=== PATIENT | female | born 1970 | race African-American/Black ===

== ENCOUNTER 2018-09-27 16:40 | Emergency (ER) | payer BC ==
[2018-09-27] MEDS ORDERED: METHYLPREDNISOLONE INJ 125 MG/2 ML SDV IV ONE (16:57)
[2018-09-27] MEDS ORDERED: IPRATROPIUM/ALBUTEROL 0.5-2.5 MG/3 ML AMPUL NEB ONE (16:57)
--- NOTE | 2018-09-27 16:59 | ER Document Report ---
ED Medical Screen (RME) - General Chief Complaint: Asthma Exacerbation Stated Complaint: ASTHMA EXACERBATION Time Seen by Provider: 09/27/18 16:54 Primary Care Provider: NIELS CALHOUN MD [Primary Care Provider] - Follow up as needed Notes: 48 years old female with a history of asthma, started wheezing since last . Was put on steroid pack by the primary care physician which is in the yesterday. Presents today with acute exacerbation of wheezing, diaphoretic shortness of breath and persistent coughing. Having acute respiratory discomfort or distress. And diffuse bilateral wheezing with decreased breath sounds. And diaphoretic. TRAVEL OUTSIDE OF THE [place] IN LAST 30 DAYS: No - Related Data Allergies/Adverse Reactions: erythromycin lactobionate [From Erythrocin] Allergy (Verified 09/27/18 16:45) rash Past Medical History - Past Medical History Cardiac Medical History: Reports: Hx Hypertension Denies: Hx Heart Attack Pulmonary Medical History: Reports: Hx Asthma - NO MEDS Neurological Medical History: Reports: Hx Seizures - FEBRILE A TODDLER. Denies: Hx Cerebrovascular Accident Endocrine Medical History: Reports: Hx Diabetes Mellitus Type 2 GI Medical History: Reports: Hx Hiatal Hernia. Denies: Hx Hepatitis, Hx Ulcer Musculoskeltal Medical History: Reports Hx Arthritis Infectious Medical History: Denies: Hx Hepatitis Past Surgical History: Reports: Hx Abdominal Surgery - gastric bypass. Denies: Hx Hysterectomy, Hx Mastectomy, Hx Open Heart Surgery, Hx Pacemaker - Immunizations Hx Diphtheria, Pertussis, Tetanus Vaccination: Yes - 6 yrs ago Physical Exam - Vital signs Vitals: Temp Pulse Resp BP Pulse Ox 99.0 F 98 26 H 133/98 H 99 09/27/18 16:47 09/27/18 16:47 09/27/18 16:47 09/27/18 16:47 09/27/18 16:47 Course - Vital Signs Vital signs: Temp Pulse Resp BP Pulse Ox 99.0 F 98 26 H 133/98 H 99 09/27/18 16:47 09/27/18 16:47 09/27/18 16:47 09/27/18 16:47 09/27/18 16:47 Doctor's Discharge - Discharge Referrals: NIELS CALHOUN MD [Primary Care Provider] - Follow up as needed
[2018-09-27] MEDS: MAGNESIUM SULFATE/D5W 1 GM/100 ML RTUPB IV SCH ×2 (17:13→17:19)
[2018-09-27] MEDS: ALBUTEROL SULFATE 0.083% NEB 2.5 MG/3 ML AMPUL NEB SCH ×2 (17:17→17:19)
--- NOTE | 2018-09-27 17:23 | RADIOLOGY REPORT (SQ) ---
EXAM DESCRIPTION: CHEST SINGLE VIEW COMPLETED DATE/TIME: 09/27/2018 5:10 pm REASON FOR STUDY: Cough and wheezing COMPARISON: 08/01/2014 EXAM PARAMETERS: NUMBER OF VIEWS: One view. TECHNIQUE: Single frontal radiographic view of the chest acquired. RADIATION DOSE: NA LIMITATIONS: None. FINDINGS: LUNGS AND PLEURA: No opacities, masses or pneumothorax. No pleural effusion. MEDIASTINUM AND HILAR STRUCTURES: No masses. Contour normal. HEART AND VASCULAR STRUCTURES: Heart normal in size. Normal vasculature. BONES: No acute findings. HARDWARE: None in the chest. OTHER: No other significant finding. IMPRESSION: NO ACUTE RADIOGRAPHIC FINDING IN THE CHEST. TECHNICAL DOCUMENTATION: JOB ID: [id number] [employer]- All Rights Reserved Reading location - IP/workstation name: [email or web address]
[2018-09-27] MEDS ORDERED: ONDANSETRON HCL INJ/PF 4 MG/2 ML SDV ONE (17:24)
[2018-09-27 17:30] LABS: ABSOLUTE BASOPHILS # (AUTO) 0.1 10^3/uL (0.0-0.2); ABSOLUTE EOSINOPHILS # (AUTO) 0.1 10^3/uL (0.0-0.6); ABSOLUTE LYMPHOCYTES (AUTO) 4.3 10^3/uL (0.5-4.7); ABSOLUTE MONOCYTES (AUTO) 1.2 10^3/uL (0.1-1.4); ABSOLUTE NEUT (AUTO) 6.4 10^3/uL (1.7-8.2); BASOPHILS % (AUTO) 0.6 % (0-2); EOSINOPHILS % (AUTO) 1.1 % (0-6); HEMATOCRIT 40.3 % (36.0-47.0); HEMOGLOBIN 13.5 g/dL (12.0-15.5); LYMPHOCYTES % (AUTO) 35.1 % (13-45); MEAN CORPUSCULAR HEMOGLOBIN 29.6 pg (27.0-33.4); MEAN CORPUSCULAR HGB CONC 33.6 g/dL (32.0-36.0); MEAN CORPUSCULAR VOLUME 88 fl (80-97); MONOCYTES % (AUTO) 10.3 % (3-13); PLATELET COUNT 445 10^3/uL (150-450); RED BLOOD COUNT 4.58 10^6/uL (3.72-5.28); RED CELL DISTRIBUTION WIDTH 13.6 % (11.5-14.0); SEGMENTED NEUTROPHILS % (AUTO) 52.9 % (42-78); TOTAL CELLS COUNTED % (AUTO) 100 %; WHITE BLOOD COUNT 12.1 10^3/uL (4.0-10.5)
[2018-09-27] MEDS ORDERED: ONDANSETRON HCL INJ/PF 4 MG/2 ML SDV IV ONE (17:30)
[2018-09-27 17:49] LABS: ALANINE AMINOTRANSFERASE 31 U/L (9-52); ALBUMIN 4.6 g/dL (3.5-5.0); ALKALINE PHOSPHATASE 107 U/L (38-126); ANION GAP 9 (5-19); ASPARTATE AMINO TRANSFERASE 30 U/L (14-36); BILIRUBIN,DIRECT 0.3 mg/dL (0.0-0.4); BILIRUBIN,TOTAL 0.6 mg/dL (0.2-1.3); BLOOD UREA NITROGEN 19 mg/dL (7-20); CALCIUM 9.6 mg/dL (8.4-10.2); CARBON DIOXIDE 29 mmol/L (22-30); CHLORIDE 106 mmol/L (98-107); GLUCOSE 117 mg/dL (75-110); POTASSIUM 4.2 mmol/L (3.6-5.0); SODIUM 143.7 mmol/L (137-145)
[2018-09-27 19:28] LABS: VENOUS BLOOD BASE EXCESS 4.3 mmol/L; VENOUS BLOOD HCO3 29.6 mmol/L (20-32); VENOUS BLOOD PCO2 46.6 mmHg (35-63); VENOUS BLOOD PH 7.42 (7.30-7.42)
[2018-09-27] MEDS ORDERED: MAGNESIUM SULFATE/D5W 1 GM/100 ML RTUPB IV SCH (20:30)
[2018-09-27 21:06] LABS: A TYPE INFLUENZA AG NEGATIVE (NEGATIVE); B INFLUENZA AG NEGATIVE (NEGATIVE)
[2018-09-27] MEDS ORDERED: HYDROCODONE BIT/HOMATROPINE SYRUP 5 ML UDCUP PO ONE (21:08)
[2018-09-27] MEDS ORDERED: AMOXICILLIN TRIHYDRATE 500 MG CAPSULE PO ONE (21:25)
[2018-09-27] MEDS ORDERED: ALBUTEROL SULFATE HFA (90 MCG/PUFF) 8 GM MDI (1 MDI/ER DISP) IH SCH (21:30)
--- NOTE | 2018-09-27 21:36 | ER Document Report ---
ED General - General Chief Complaint: Asthma Exacerbation Stated Complaint: ASTHMA EXACERBATION Time Seen by Provider: 09/27/18 16:54 Primary Care Provider: NIELS CALHOUN MD [ACTIVE STAFF] - Follow up as needed TRAVEL OUTSIDE OF THE [place] IN LAST 30 DAYS: No - HPI Notes: She presents emergency department for evaluation of cough and shortness of breath. She has a history of asthma. She states she has had nasal congestion his symptoms for the last 3 weeks. She started having some left-sided chest wall pain over the last several days. She was seen by her primary care ph ysician who recommended that she come to the emergency department for chest x- ray. She denies any fevers but she has had some chills. No nausea or vomiting. Eating and drinking normally. - Related Data Allergies/Adverse Reactions: erythromycin lactobionate [From Erythrocin] Allergy (Verified 09/27/18 16:45) rash Past Medical History - General Information source: Patient - Social History Smoking Status: Never Smoker Chew tobacco use (# tins/day): No Frequency of alcohol use: Rare Drug Abuse: None Family History: Reviewed & Not Pertinent Patient has suicidal ideation: No Patient has homicidal ideation: No - Past Medical History Cardiac Medical History: Reports: Hx Hypertension - no meds Denies: Hx Heart Attack Pulmonary Medical History: Reports: Hx Asthma - NO MEDS Neurological Medical History: Reports: Hx Seizures - FEBRILE A TODDLER. Denies: Hx Cerebrovascular Accident Endocrine Medical History: Reports: Hx Diabetes Mellitus Type 2 - no meds Renal/ Medical History: Denies: Hx Peritoneal Dialysis GI Medical History: Reports: Hx Hiatal Hernia. Denies: Hx Hepatitis, Hx Ulcer Musculoskeletal Medical History: Reports Hx Arthritis Infectious Medical History: Denies: Hx Hepatitis Past Surgical History: Reports: Hx Abdominal Surgery - gastric bypass. Denies: Hx Hysterectomy, Hx Mastectomy, Hx Open Heart Surgery, Hx Pacemaker - Immunizations Hx Diphtheria, Pertussis, Tetanus Vaccination: Yes - 6 yrs ago Review of Systems - Review of Systems Constitutional: No symptoms reported EENT: See HPI Cardiovascular: No symptoms reported Respiratory: See HPI Gastrointestinal: No symptoms reported Female Genitourinary: No symptoms reported Musculoskeletal: No symptoms reported Skin: No symptoms reported Physical Exam - Vital signs Vitals: Temp Pulse Resp BP Pulse Ox 99.0 F 98 26 H 133/98 H 99 09/27/18 16:47 09/27/18 16:47 09/27/18 16:47 09/27/18 16:47 09/27/18 16:47 - Notes Notes: Vital signs reviewed, please refer to chart. Patient is normocephalic, atraumatic. Pupils equal round, reactive to light. Tender over left maxillary and ethmoid sinuses. Neck is supple without meningismus. Heart is regular rate and rhythm. No work of breathing. Chest wall is tender to palpation. Lungs are clear to auscultation bilaterally. Abdomen is soft, nontender, normoactive bowel sounds throughout. Extremities without cyanosis, clubbing, edema. Peripheral pulses are equal. Skin is warm and dry. Patient is awake, alert, neurological exam is nonfocal. Course - Re-evaluation Re-evalutation: 09/27/18 21:34 Presents emergency department for evaluation. She was seen and evaluated by triage physician, orders were placed. Chest x-ray was interpreted by radiology showing no acute cardiopulmonary disease. Lavatory medications were largely unremarkable. Patient continued to feel short of breath despite clear lungs and good oxygenation. She was given magnesium, Hycodan. I did go ahead and treat her with amoxicillin for presumed sinusitis, given the duration of her symptom was. At this point again discharged home. She is to follow-up with primary care, return to the emergency department with worsening or new concerning symptoms. - Vital Signs Vital signs: Temp Pulse Resp BP Pulse Ox 99.0 F 98 23 H 125/82 100 09/27/18 16:47 09/27/18 16:47 09/27/18 20:01 09/27/18 20:01 09/27/18 20:01 - Laboratory Result Diagrams: 09/27/18 17:13 09/27/18 17:13 Laboratory results interpreted by me: 09/27/18 09/27/18 17:13 17:13 WBC 12.1 H Glucose 117 H - EKG Interpretation by Me Additional EKG results interpreted by me: 09/27/18 21:36 Sinus mechanism with a rate of 89 bpm. Normal axis and intervals, no acute ST changes concerning for ischemia or infarction. Discharge - Discharge Clinical Impression: Acute sinusitis, Acute asthma exacerbation Condition: Stable Instructions: Asthma ([facility]) Additional Instructions: Use inhaler, 1-2 puffs every 4-6 hours as needed for difficulty breathing. Take all of the prednisone and antibiotics as prescribed. Follow-up with your doctor next week. Return to the emergency department with worsening or new concerning symptoms of any sort. Prescriptions: Amoxicillin Trihydrate [Amoxil 500 mg Capsule] 500 mg PO TID #30 cap Prednisone [Deltasone 20 mg Tablet] See Protocol PO DAILY #20 tablet Referrals: NIELS CALHOUN MD [ACTIVE STAFF] - Follow up as needed
[2018-09-27 21:53] VITALS: BP 128/63
[2018-09-27] MEDS ORDERED: HYDROCODONE BIT/HOMATROPINE 5-1.5 MG TABLET PO ONE (22:00)
--- NOTE | 2018-09-27 22:18 | EKG REPORT ---
SEVERITY:- NORMAL ECG - SINUS RHYTHM : Confirmed by: Neha Barakat 27-Sep-2018 22:17:44
== END 2018-09-27 22:03 | disposition home or self-care (01) ==
LOC: ER 16:40
DX: J01.90 Acute sinusitis, unspecified (principal); J45.901 Unspecified asthma with (acute) exacerbation; Z98.84 Bariatric surgery status; Z88.3 Allergy status to other anti-infective agents
CPT/HCPCS: 93005; 94640 ×2; 99285; 96375; 96365; 36415; 85025; 80053; 82803; 87804; 71045; 93010; J2930; J3475; J2405; J3490; J7620

== ENCOUNTER 2018-10-12 02:33 | Inpatient (IN) | payer BC ==
[2018-10-12] MEDS ORDERED: KETAMINE HCL INJ 500 MG/10 ML VIAL IV ONE (02:46)
[2018-10-12] MEDS ORDERED: ONDANSETRON HCL INJ/PF 4 MG/2 ML SDV IV ONE (02:47)
[2018-10-12] MEDS ORDERED: KETAMINE HCL INJ 500 MG/10 ML VIAL ONE (02:47)
--- NOTE | 2018-10-12 02:49 | ER Document Report ---
ED General - General Chief Complaint: Shortness Of Breath Stated Complaint: SHORTNESS OF BREATH Time Seen by Provider: 10/12/18 02:46 Primary Care Provider: VITALIY PURVIS PA-C [Primary Care Provider] - Follow up as needed Notes: Patient is a 48-year-old female who presents with complaint of difficulty breathing. She has a history of asthma. She says she was diagnosed with URI 1- 2 weeks ago. She then saw her doctor. Said her doctor placed her on nebulizer treatments at home. She says she has been using them but despite this has not been doing well. She also had steroids. She says she is gradually worsened over last few days and today while at work she became much worse and had significant difficulty breathing. [place] was called. Paramedics said when they arrived she was not moving much air and had very tight wheezing breath sounds. They gave her Solu-Medrol, magnesium, and several breathing treatments. She now has improved air movement but still is having difficulty breathing with some distress. TRAVEL OUTSIDE OF THE [place] IN LAST 30 DAYS: No - Related Data Allergies/Adverse Reactions: erythromycin lactobionate [From Erythrocin] Allergy (Verified 09/27/18 16:45) rash Past Medical History - Social History Smoking Status: Never Smoker Frequency of alcohol use: None Drug Abuse: None Family History: Reviewed & Not Pertinent - Past Medical History Cardiac Medical History: Reports: Hx Hypertension - no meds Denies: Hx Heart Attack Pulmonary Medical History: Reports: Hx Asthma - NO MEDS Neurological Medical History: Reports: Hx Seizures - FEBRILE A TODDLER. Denies: Hx Cerebrovascular Accident Endocrine Medical History: Reports: Hx Diabetes Mellitus Type 2 - no meds Renal/ Medical History: Denies: Hx Peritoneal Dialysis GI Medical History: Reports: Hx Hiatal Hernia. Denies: Hx Hepatitis, Hx Ulcer Musculoskeletal Medical History: Reports Hx Arthritis Infectious Medical History: Denies: Hx Hepatitis Past Surgical History: Reports: Hx Abdominal Surgery - gastric bypass. Denies: Hx Hysterectomy, Hx Mastectomy, Hx Open Heart Surgery, Hx Pacemaker - Immunizations Hx Diphtheria, Pertussis, Tetanus Vaccination: Yes - 6 yrs ago Review of Systems - Review of Systems Notes: My Normal Review Basic REVIEW OF SYSTEMS: CONSTITUTIONAL : Denies fever, chills, or sweats. Denies recent illness. EENT: Denies eye, ear, throat, or mouth pain or symptoms. Denies nasal or sinus congestion. CARDIOVASCULAR: Denies chest pain. RESPIRATORY: Difficulty breathing. GASTROINTESTINAL: Denies abdominal pain. Denies nausea, vomiting, or diarrhea. MUSCULOSKELETAL: Denies neck or back pain or joint pain or swelling. SKIN: Denies rash or skin lesions. NEUROLOGICAL: Denies altered mental status or loss of consciousness. Denies headache. Denies weakness or paralysis or loss of use of either side. Denies problems with gait or speech. Denies sensory or motor loss. ALL OTHER SYSTEMS REVIEWED AND NEGATIVE. Physical Exam - Notes Notes: General Appearance: Well nourished, alert, cooperative, moderate acute distress, no obvious discomfort. Tearful with some erratic breathing. Vitals: reviewed, See vital signs table. Head: no swelling or tenderness to the head Eyes: PERRL, EOMI, Conjuctiva clear Mouth: No decreasd moisture Throat: No tonsillar inflammation, No airway obstruction, No lymphadenopathy Neck: Supple, no neck tenderness, No thyromegaly Lungs: Scattered wheezing. Fair air exchange. Some accessory muscle use. Heart: Tachycardic rate, Regular rythm, No murmur, no rub Abdomen: Normal BS, soft, No rigidity, No abdominal tenderness, No guarding, no rebound, no abdominal masses, no organomegaly Extremities: strength 5/5 in all extremities, good pulses in all extremities, no swelling or tenderness in the extremities, no edema. Skin: warm, dry, appropriate color, no rash Neuro: speech clear, oriented x 3, normal affect, responds appropriately to questions. Course - Re-evaluation Re-evalutation: 10/12/18 02:47 Paramedics report that when they first arrived the patient has very tight lung sounds with poor air movement. Now she has good air movement but she is anxious and not controlling her breathing well. Her respiratory rate has improved some according to paramedics however she is not breathing at a regular rate and she is very choppy with her breathing. I will give her a small dose of ketamine to see if this helps calm some of her anxiety did down in regards to her asthma and this will also help with bronchodilation to help further help her breathing. We will closely monitor to make sure she improves. 10/12/18 03:51 On reevaluation patient's breathing is much improved. Her breathing is come down significant. She is still requiring BiPAP but doing well with it. She still has a few scattered wheezes but overall her air movement is much improved. I did talk to patient length. I recommend admission based on the fact that she was in distress when she arrived in the fact it took several breathing treatments with the paramedics, site Medrol, magnesium, and ketamine she is here to get her better. Patient agrees with admission. I did speak with the hospitalist, Dr. Chicas, who agrees to evaluate her for admission. Dictation of this chart was performed using voice recognition software; therefore, there may be some unintended grammatical errors. - Laboratory Result Diagrams: 10/12/18 02:50 10/12/18 02:50 Laboratory results interpreted by me: 10/12/18 10/12/18 02:50 02:50 WBC 11.8 H Glucose 139 H Discharge - Discharge Clinical Impression: Asthma attack Qualifiers: Asthma severity: unspecified severity Asthma persistence: persistent Qualified Code(s): J45.901 - Unspecified asthma with (acute) exacerbation Condition: Stable Disposition: ADMITTED OBSERVATION Admitting Provider: Hospitalist Unit Admitted: Telemetry Referrals: VITALIY PURVIS PA-C [Primary Care Provider] - Follow up as needed
[2018-10-12 03:08] LABS: ABSOLUTE EOSINOPHILS # (AUTO) 0.1 10^3/uL (0.0-0.6); ABSOLUTE LYMPHOCYTES (AUTO) 3.7 10^3/uL (0.5-4.7); ABSOLUTE MONOCYTES (AUTO) 0.9 10^3/uL (0.1-1.4); BASOPHILS % (AUTO) 0.4 % (0-2); HEMATOCRIT 37.8 % (36.0-47.0); HEMOGLOBIN 12.6 g/dL (12.0-15.5); LYMPHOCYTES % (AUTO) 31.6 % (13-45); MEAN CORPUSCULAR HEMOGLOBIN 29.5 pg (27.0-33.4); MEAN CORPUSCULAR HGB CONC 33.5 g/dL (32.0-36.0); MEAN CORPUSCULAR VOLUME 88 fl (80-97); MONOCYTES % (AUTO) 7.9 % (3-13); PLATELET COUNT 300 10^3/uL (150-450); RED BLOOD COUNT 4.29 10^6/uL (3.72-5.28); RED CELL DISTRIBUTION WIDTH 13.6 % (11.5-14.0); SEGMENTED NEUTROPHILS % (AUTO) 59.1 % (42-78); TOTAL CELLS COUNTED % (AUTO) 100 %; WHITE BLOOD COUNT 11.8 10^3/uL (4.0-10.5)
[2018-10-12 03:25] LABS: ANION GAP 11 (5-19); BLOOD UREA NITROGEN 20 mg/dL (7-20); CALCIUM 9.3 mg/dL (8.4-10.2); CARBON DIOXIDE 23 mmol/L (22-30); CHLORIDE 107 mmol/L (98-107); GLUCOSE 139 mg/dL (75-110); POTASSIUM 4.1 mmol/L (3.6-5.0); SODIUM 141.1 mmol/L (137-145)
[2018-10-12] MEDS ORDERED: LEVALBUTEROL HCL NEB 1.25 MG/3 ML AMPUL NEB ONE (03:52)
[2018-10-12] MEDS ORDERED: HYDRALAZINE HCL INJ/PF 20 MG/1 ML SDV IV PRN (04:03)
[2018-10-12] MEDS ORDERED: GLUCAGON,HUMAN RECOMB 1 MG INJ IM PRN (04:04)
[2018-10-12] MEDS ORDERED: IPRATROPIUM/ALBUTEROL 0.5-2.5 MG/3 ML AMPUL NEB PRN (04:04)
[2018-10-12] MEDS ORDERED: DEXTROSE 50%-WATER 25 GM/50 ML DISP.SYRIN IV PRN ×2 (04:04)
[2018-10-12] MEDS ORDERED: DEXTROSE 40% GEL 15 GM TUBE PO PRN ×2 (04:04)
[2018-10-12] MEDS ORDERED: PREDNISONE 20 MG TABLET PO ONE (04:15)
[2018-10-12] MEDS ORDERED: CHLORPHENIRAMINE MALEATE 4 MG TABLET PO ONE (04:22)
--- NOTE | 2018-10-12 04:22 | PDOC H&P ---
History of Present Illness Admission Date/PCP: 10/12/18 04:04 VITALIY PURVIS PA-C Patient complains of: Asthma exacerbation History of Present Illness: NANCY REICH is a 48 year old female with a past medical history of remote gastric bypass with persistent morbid obesity, GERD and persistent asthma with exacerbation of the last 2 weeks associated with rhinorrhea, GERD and nonproductive cough. She has had brief improvement of symptoms with systemic steroids but severe worsening 4 hours prior to presentation. She is found with global wheeze requiring continuous nebulizer, magnesium, ketamine and BiPAP. She denies recent antibiotic use, previous intubation and is otherwise felt well. She is unaware of her baseline peak flow Past Medical History Cardiac Medical History: Reports: Hypertension - no meds Denies: Myocardial Infarction Pulmonary Medical History: Reports: Asthma - NO MEDS Neurological Medical History: Reports: Seizures - FEBRILE A TODDLER Endocrine Medical History: Reports: Diabetes Mellitus Type 2 - no meds, Obesity GI Medical History: Reports: Hiatal Hernia Denies: Hepatitis Musculoskeltal Medical History: Reports: Arthritis Psychiatric Medical History: Reports: None Hematology: Denies: Anemia, Sickle Cell Disease Past Surgical History Past Surgical History: Denies: Amputation, Hysterectomy, Mastectomy, Pacemaker Social History Information Source: Patient, ON LICENSE OF [facility] Records Lives with: Friend Smoking Status: Never Smoker Drugs: None - Advance Directive Resuscitation Status: Full Code Family History Family History: Hypertension Parental Family History Reviewed: Yes Children Family History Reviewed: Yes Sibling(s) Family History Reviewed.: Yes Medication/Allergy Home Medications: No Home Medications 1 06/08/12 Amoxicillin Trihydrate [Amoxil 500 mg Capsule] 500 mg PO TID #30 cap 09/27/18 Prednisone [Deltasone 20 mg Tablet] See Protocol PO DAILY #20 tablet 09/27/18 Allergies/Adverse Reactions: erythromycin lactobionate [From Erythrocin] Allergy (Verified 09/27/18 16:45) rash Review of Systems Constitutional: PRESENT: as per HPI, weight gain. ABSENT: anorexia, chills, fatigue Eyes: ABSENT: visual disturbances Ears: ABSENT: hearing changes Nose, Mouth, and Throat: ABSENT: mouth pain, sore throat, vertigo Cardiovascular: PRESENT: dyspnea on exertion, edema. ABSENT: chest pain, orthropnea, palpitations Respiratory: PRESENT: cough, dyspnea, sputum Gastrointestinal: ABSENT: abdominal pain, constipation, diarrhea, hematemesis, hematochezia, nausea, vomiting Genitourinary: ABSENT: dysuria, hematuria Musculoskeletal: ABSENT: joint swelling Integumentary: ABSENT: rash, wounds Neurological: ABSENT: abnormal gait, abnormal speech, confusion, dizziness, focal weakness, syncope Psychiatric: ABSENT: anxiety, depression, homidical ideation, suicidal ideation Endocrine: ABSENT: cold intolerance, heat intolerance, polydipsia, polyuria Hematologic/Lymphatic: ABSENT: easy bleeding, easy bruising Physical Exam Vital Signs: Temp Pulse Resp BP Pulse Ox 40 H 100 10/12/18 02:46 10/12/18 02:46 General appearance: PRESENT: cooperative, morbidly obese, severe distress Head exam: PRESENT: atraumatic, normocephalic Eye exam: PRESENT: conjunctiva pink, EOMI, PERRLA. ABSENT: scleral icterus Ear exam: PRESENT: normal external ear exam Mouth exam: PRESENT: moist, tongue midline Neck exam: ABSENT: carotid bruit, JVD, lymphadenopathy, thyromegaly Respiratory exam: PRESENT: accessory muscle use, clear to auscultation louisa, crackles, prolonged expiratory phas, retraction, symmetrical, tachypnea, wh eezes. ABSENT: rales, rhonchi Cardiovascular exam: PRESENT: +S1, +S2, tachycardia Pulses: PRESENT: normal dorsalis pedis pul Vascular exam: PRESENT: normal capillary refill GI/Abdominal exam: PRESENT: normal bowel sounds, soft. ABSENT: distended, guarding, mass, organolmegaly, rebound, tenderness Rectal exam: PRESENT: deferred Extremities exam: PRESENT: full ROM. ABSENT: calf tenderness, clubbing, pedal edema Neurological exam: PRESENT: alert, awake, oriented to person, oriented to place, oriented to time, oriented to situation, CN II-XII grossly intact. ABSENT: motor sensory deficit Psychiatric exam: PRESENT: appropriate affect, normal mood. ABSENT: homicidal ideation, suicidal ideation Skin exam: PRESENT: dry, intact, warm. ABSENT: cyanosis, rash Results Laboratory Results: 10/12/18 02:50 10/12/18 02:50 10/12/18 10/12/18 02:50 02:50 WBC 11.8 H RBC 4.29 Hgb 12.6 Hct 37.8 MCV 88 MCH 29.5 MCHC 33.5 RDW 13.6 Plt Count 300 Seg Neutrophils % 59.1 Lymphocytes % 31.6 Monocytes % 7.9 Eosinophils % 1.0 Basophils % 0.4 Absolute Neutrophils 7.0 Absolute Lymphocytes 3.7 Absolute Monocytes 0.9 Absolute Eosinophils 0.1 Absolute Basophils 0.0 Sodium 141.1 Potassium 4.1 Chloride 107 Carbon Dioxide 23 Anion Gap 11 BUN 20 Creatinine 0.57 Est GFR ( Amer) > 60 Est GFR (Non-Af Amer) > 60 Glucose 139 H Calcium 9.3 Assessment & Plan - Diagnosis (1) Asthma attack Qualifiers: Asthma severity: unspecified severity Asthma persistence: persistent Qualified Code(s): J45.901 - Unspecified asthma with (acute) exacerbation Is this a current diagnosis for this admission?: Yes Plan: Likely secondary to URI though complicated by GERD and super morbid obesity. Prednisone, supplemental oxygen, BiPAP, follow-up peak flow (2) GERD (gastroesophageal reflux disease) Is this a current diagnosis for this admission?: Yes Plan: Prevacid twice daily and education (3) Allergic sinusitis Is this a current diagnosis for this admission?: Yes Plan: Flonase (4) Diabetes Is this a current diagnosis for this admission?: Yes Plan: Self-reported, sliding scale insulin, follow-up A1c (5) Morbid obesity Is this a current diagnosis for this admission?: Yes Plan: Status post gastric bypass, morbid obesity will evaluate for metabolic cause with evaluation of thyroid function and dietitian consultation - Time Time Spent: 50 to 70 Minutes - Inpatient Certification Medical Necessity: Need Close Monitoring Due to Risk of Patient Decompensation
--- NOTE | 2018-10-12 04:27 | RADIOLOGY REPORT (SQ) ---
EXAM DESCRIPTION: XR CHEST 1 VIEW COMPLETED DATE/TME: 10/12/2018 02:46 CLINICAL HISTORY: 48 years, Female, dyspnea COMPARISON: 09/27/2018 NUMBER OF VIEWS: One TECHNIQUE: AP view of the chest LIMITATIONS: None. FINDINGS: The lungs are clear. The heart is normal in size. There is no pneumothorax or pleural effusion. There is mild elevation right hemidiaphragm. There is no acute fracture. IMPRESSION: No acute cardiopulmonary abnormality copyright 2010 [employer]- All Rights Reserved
[2018-10-12] MEDS ORDERED: LEVOFLOXACIN 750 MG/D5W RTU 750 MG/150 ML RTUPB IV ONE (05:00)
[2018-10-12] MEDS ORDERED: LANSOPRAZOLE 30 MG TAB.RAP.DR PO SCH (06:00)
[2018-10-12] MEDS ORDERED: FLUTICASONE NASAL SPRAY 50 MCG/SPRY 120 SPRAY/16 GM ONE (06:22)
[2018-10-12] MEDS: HEPARIN SOD (PORCINE) 5,000 UNIT/ML 1 ML SYRINGE SUBCUT SCH ×3 (06:23→22:35)
[2018-10-12] MEDS: FLUTICASONE NASAL SPRAY 50 MCG/SPRY 120 SPRAY/16 GM NASL SCH ×2 (06:28→19:34)
[2018-10-12] MEDS ORDERED: PANTOPRAZOLE SODIUM 40 MG TABLET.DR PO SCH ×2 (08:00→17:00)
--- NOTE | 2018-10-12 08:00 | EKG REPORT ---
SEVERITY:- NORMAL ECG - SINUS RHYTHM : Confirmed by: Nehemias Ma MD 12-Oct-2018 07:59:56
[2018-10-12] MEDS: IPRATROPIUM/ALBUTEROL 0.5-2.5 MG/3 ML AMPUL NEB SCH ×3 (08:52→19:34)
[2018-10-12] MEDS: PANTOPRAZOLE SODIUM 40 MG TABLET.DR PO SCH ×2 (09:20→19:31)
[2018-10-12] MEDS: INSULIN LISPRO 100 UNIT/ML 3 ML VIAL SUBCUT SCH ×3 (09:27→19:30)
[2018-10-12] MEDS: PREDNISONE 20 MG TABLET PO SCH ×2 (11:24→19:35)
[2018-10-12] MEDS: GABAPENTIN 300 MG CAPSULE PO SCH ×2 (14:52→22:31)
--- NOTE | 2018-10-12 15:00 | PDOC PROGRESS REPORT ---
Subjective Progress Note for:: 10/12/18 Subjective:: 48-year-old female with history of morbid obesity and recent gastric bypass gastroparesis reflux disease asthma came to the ER with exacerbation for the last 2 weeks in association with runny nose and nonproductive cough. On examination today patient is still short of breath struggling to complete the sentences. She is try to eat her breakfast and took off her BiPAP because she is a diabetic and got insulin. She is coughing continuously nonproductive cough from going to put her on Robitussin 10 mils every 4 hours. Reason For Visit: ACUTE BRONCITIS, ASTHMA, DIABETES GERD MORBID Physical Exam Vital Signs: Temp Pulse Resp BP Pulse Ox 97.9 F 72 19 143/87 H 100 10/12/18 06:01 10/12/18 08:57 10/12/18 14:00 10/12/18 14:01 10/12/18 14:01 Pulse Oximeter Continuous Start: 10/12/18 04:04 Freq: RTQ4 Status: Active Protocol: Document 10/12/18 12:00 JDR (Rec: 10/12/18 13:04 JDR [id number]) Pulse Oximetry Assessment Oxygen Saturation (92-100) 98 Equipment Usage Equipment Standby Continuous SpO2 Machine # 0 Additional RT Notes Other pt on er monitor Intake & Output 10/11/18 10/12/18 10/13/18 06:59 06:59 06:59 Weight 186.3 kg General appearance: PRESENT: mild distress, morbidly obese Head exam: PRESENT: atraumatic Eye exam: PRESENT: PERRLA Mouth exam: PRESENT: moist, tongue midline Neck exam: ABSENT: carotid bruit, JVD, lymphadenopathy, thyromegaly Respiratory exam: PRESENT: decreased breath sounds, wheezes Cardiovascular exam: PRESENT: tachycardia GI/Abdominal exam: PRESENT: normal bowel sounds, soft. ABSENT: distended, guarding, mass, organolmegaly, rebound, tenderness Extremities exam: PRESENT: full ROM. ABSENT: calf tenderness, clubbing, pedal edema Neurological exam: PRESENT: alert, awake, oriented to person, oriented to place, oriented to time, oriented to situation, CN II-XII grossly intact. ABSENT: motor sensory deficit Psychiatric exam: PRESENT: appropriate affect, normal mood. ABSENT: homicidal ideation, suicidal ideation Results Laboratory Results: 10/12/18 02:50 10/12/18 02:50 10/12/18 10/12/18 02:50 02:50 WBC 11.8 H RBC 4.29 Hgb 12.6 Hct 37.8 MCV 88 MCH 29.5 MCHC 33.5 RDW 13.6 Plt Count 300 Seg Neutrophils % 59.1 Lymphocytes % 31.6 Monocytes % 7.9 Eosinophils % 1.0 Basophils % 0.4 Absolute Neutrophils 7.0 Absolute Lymphocytes 3.7 Absolute Monocytes 0.9 Absolute Eosinophils 0.1 Absolute Basophils 0.0 Sodium 141.1 Potassium 4.1 Chloride 107 Carbon Dioxide 23 Anion Gap 11 BUN 20 Creatinine 0.57 Est GFR ( Amer) > 60 Est GFR (Non-Af Amer) > 60 Glucose 139 H Calcium 9.3 10/12/18 02:56 NT-Pro-B Natriuret Pep 181 H Impressions: Chest X-Ray 10/12/18 02:46 IMPRESSION: No acute cardiopulmonary abnormality copyright 2010 [employer]- All Rights Reserved Assessment & Plan - Diagnosis (1) Asthma attack Qualifiers: Asthma severity: unspecified severity Asthma persistence: persistent Qualified Code(s): J45.901 - Unspecified asthma with (acute) exacerbation Is this a current diagnosis for this admission?: Yes Plan: Likely secondary to URI though complicated by GERD and super morbid obesity. Prednisone, supplemental oxygen, BiPAP, follow-up peak flow 10/12/2018-patient is admitted with asthma exacerbation most likely secondary to gastric further reflux disease and morbid obesity. Patient is presently on albuterol nebs every 6 hours as needed duo nebs every 6 hours and also on prednisone 20 mg p.o. twice daily. Patient is also on BiPAP as needed basis. Chest x-ray was negative for acute changes. pulse on BiPAP is 98%. Plan is to continue the present management. (2) Morbid obesity Is this a current diagnosis for this admission?: No Plan: 10/12/2018-patient has morbid obesity with BMI of more than 40 diet exercise weight loss and lifestyle modifications are discussed with the patient. A consult was requested. (3) Diabetes Is this a current diagnosis for this admission?: No Plan: 10/12/2018-patient latest blood sugar is 162. Patient is a chronic type 2 diabetes mellitus start on insulin sliding scale before meals and at bedtime and check her hemoglobin A1c in the morning. (4) GERD (gastroesophageal reflux disease) Is this a current diagnosis for this admission?: No Plan: 10/12/2018-patient has a chronic history of gastric further reflux disease started on Prevacid 20 mg twice a day. Plan is to continue the present management. - Time Time Spent with patient: 15-24 minutes Medications reviewed and adjusted accordingly: Yes Anticipated discharge: Home
[2018-10-12] MEDS ORDERED: ONDANSETRON HCL INJ/PF 4 MG/2 ML SDV ONE (16:08)
[2018-10-12] MEDS ORDERED: ONDANSETRON HCL INJ/PF 4 MG/2 ML SDV IV PRN (16:12)
[2018-10-12] MEDS: BENZONATATE 100 MG CAPSULE PO PRN (16:15)
[2018-10-12] MEDS ORDERED: PANTOPRAZOLE SODIUM 40 MG TABLET.DR PO ONE (18:30)
[2018-10-13] MEDS: IPRATROPIUM/ALBUTEROL 0.5-2.5 MG/3 ML AMPUL NEB SCH ×4 (01:40→19:33)
[2018-10-13 05:48] LABS: ABSOLUTE BASOPHILS # (AUTO) 0.1 10^3/uL (0.0-0.2); ABSOLUTE LYMPHOCYTES (AUTO) 1.2 10^3/uL (0.5-4.7); ABSOLUTE MONOCYTES (AUTO) 1.1 10^3/uL (0.1-1.4); ABSOLUTE NEUT (AUTO) 11.6 10^3/uL (1.7-8.2); BASOPHILS % (AUTO) 0.6 % (0-2); EOSINOPHILS % (AUTO) 0.1 % (0-6); HEMATOCRIT 38.1 % (36.0-47.0); HEMOGLOBIN 12.7 g/dL (12.0-15.5); LYMPHOCYTES % (AUTO) 8.4 % (13-45); MEAN CORPUSCULAR HEMOGLOBIN 29.5 pg (27.0-33.4); MEAN CORPUSCULAR HGB CONC 33.3 g/dL (32.0-36.0); MEAN CORPUSCULAR VOLUME 88 fl (80-97); MONOCYTES % (AUTO) 7.9 % (3-13); PLATELET COUNT 275 10^3/uL (150-450); RED BLOOD COUNT 4.31 10^6/uL (3.72-5.28); RED CELL DISTRIBUTION WIDTH 13.7 % (11.5-14.0); TOTAL CELLS COUNTED % (AUTO) 100 %
[2018-10-13 06:04] LABS: ALANINE AMINOTRANSFERASE 24 U/L (9-52); ALBUMIN 4.4 g/dL (3.5-5.0); ALKALINE PHOSPHATASE 83 U/L (38-126); ANION GAP 12 (5-19); ASPARTATE AMINO TRANSFERASE 46 U/L (14-36); BILIRUBIN,DIRECT 0.3 mg/dL (0.0-0.4); BILIRUBIN,TOTAL 0.9 mg/dL (0.2-1.3); BLOOD UREA NITROGEN 17 mg/dL (7-20); CALCIUM 9.7 mg/dL (8.4-10.2); CARBON DIOXIDE 27 mmol/L (22-30); CHLORIDE 104 mmol/L (98-107); GLUCOSE 124 mg/dL (75-110); POTASSIUM 4.4 mmol/L (3.6-5.0); SODIUM 142.7 mmol/L (137-145); TOTAL PROTEIN 7.6 g/dL (6.3-8.2)
[2018-10-13] MEDS: HEPARIN SOD (PORCINE) 5,000 UNIT/ML 1 ML SYRINGE SUBCUT SCH ×3 (07:32→21:32)
[2018-10-13] MEDS: GABAPENTIN 300 MG CAPSULE PO SCH ×3 (07:33→21:33)
[2018-10-13] MEDS: LEVOFLOXACIN 750 MG/D5W RTU 750 MG/150 ML RTUPB IV SCH ×2 (07:33→10:30)
[2018-10-13] MEDS: PANTOPRAZOLE SODIUM 40 MG TABLET.DR PO SCH ×2 (07:33→16:13)
[2018-10-13] MEDS: FLUTICASONE NASAL SPRAY 50 MCG/SPRY 120 SPRAY/16 GM NASL SCH ×2 (07:39→18:26)
[2018-10-13] MEDS: BENZONATATE 100 MG CAPSULE PO PRN ×2 (07:39→16:13)
[2018-10-13] MEDS: ACETAMINOPHEN 325 MG TABLET PO PRN (07:39)
[2018-10-13] MEDS: INSULIN LISPRO 100 UNIT/ML 3 ML VIAL SUBCUT SCH ×3 (08:00→16:14)
[2018-10-13] MEDS ORDERED: METHYLPREDNISOLONE INJ 125 MG/2 ML SDV IV ONE (11:30)
[2018-10-13 12:39] LABS: ARTERIAL BLOOD HCO3 24.1 mmol/L (20-24); ARTERIAL BLOOD O2 SATURATION 99.7 % (94-98); ARTERIAL BLOOD PCO2 29.9 mmHg (35-45); ARTERIAL BLOOD PH 7.52 (7.35-7.45); ARTERIAL BLOOD PO2 263.8 mmHg (80-100)
[2018-10-13 12:40] LABS: ARTERIAL BLOOD FIO2 21%
[2018-10-13] MEDS: GUAIFENESIN/D-METHORPHAN (200-20 MG) SYRUP 10 ML PO PRN ×2 (14:44→21:32)
--- NOTE | 2018-10-13 15:48 | RADIOLOGY REPORT (SQ) ---
EXAM DESCRIPTION: CTA CHEST COMPLETED DATE/TIME: 10/13/2018 3:39 pm REASON FOR STUDY: chest pain, tachypnea, hypoxia COMPARISON: 10/12/2018 TECHNIQUE: CT scan of the chest performed using helical scanning technique with dynamic intravenous contrast injection. Images reviewed with lung, soft tissue and bone windows. Reconstructed coronal and sagittal MPR images reviewed. Additional 3 dimensional post-processing performed to develop Maximal Intensity Projection images (VT P). All images stored on PACS. All CT scanners at this facility use dose modulation, iterative reconstruction, and/or weight based d osing when appropriate to reduce radiation dose to as low as reasonably achievable (ALARA). [facility]: Dose Right [facility]: CareDose [facility]: Dose Right [facility]: Teradose 4D [facility]: Whisper CONTRAST TYPE AND DOSE: contrast/concentration: Isovue 350.00 mg/ml; Total Contrast Delivered: 90.0 ml; Total Saline Delivered: 80.0 ml Contrast bolus optimized for the pulmonary arteries. Not diagnostic for the aorta. RENAL FUNCTION: None required. The patient is less than 50 years old. RADIATION DOSE: CT Rad equipment meets quality standard of care and radiation dose reduction techniq ues were employed. CTDIvol: 41.3 - 41.7 mGy. DLP: 1518 mGy-cm. . LIMITATIONS: None. FINDINGS: LUNGS AND PLEURA: No masses, infiltrates, or pneumothorax. No pleural effusions or pleura l calcifications. AORTA AND GREAT VESSELS: No aneurysm. Contrast bolus not optimized for the aorta. HEART: No pericardial effusion. No significant coronary artery calcifications. PULMONARY ARTERIES: No emboli visualized in the main pulmonary arteries or the segmental branches. HILAR AND MEDIASTINAL STRUCTURES: No identified masses or abnormal nodes. HARDWARE: None in the chest. UPPER ABDOMEN: No significant findings. Limited exam. THYROID AND OTHER SOFT TISSUES: No masses. No adenopathy. BONES: No acute or significant finding. 3D MIPS: Confirm above findings. OTHER: No other significant finding. IMPRESSION: Negative examination for pulmonary embolism. COMMENT: Quality ID # [id number]: Final reports with documentation of one or more dose reduction techniques (e.g., Automated exposure control, adjustment of the mA and/or kV according to patient size, use of iterative reconstruction technique) TECHNICAL DOCUMENTATION: JOB ID: [id number] [employer]- All Rights Reserved Reading location - IP/workstation name: [email or web address]
--- NOTE | 2018-10-13 16:53 | PDOC PROGRESS REPORT ---
Subjective Progress Note for:: 10/13/18 Subjective:: NANCY REICH is a 48 year old female with a past medical history of remote gastric bypass with persistent morbid obesity, GERD and persistent asthma with exacerbation of the last 2 weeks associated with rhinorrhea, GERD and nonproductive cough who was admitted 10/12/2018 for asthma exacerbation The patient is seen on morning rounds. She is found sitting upright in bed, high Monteiro's, on BiPAP. Patient states that she has been on continuous BiPAP for nearly 24 hours; she is able to come off the BiPAP for short periods of time to use the restroom or to eat prior to becoming severely dyspneic. She states that she has been no more than 15 consecutive minutes off of BiPAP. She complains of right frontal headache, rhinorrhea, postnasal drip, sore throat, nonproductive cough, and continued shortness of breath. She denies fever, chills, chest pain, palpitations, orthopnea, abdominal pain, nausea vomiting and diarrhea. She has no other questions or concerns at this time. No concerns per nursing. Reason For Visit: ACUTE BRONCITIS, ASTHMA, DIABETES GERD MORBID Physical Exam Vital Signs: Temp Pulse Resp BP Pulse Ox 98.2 F 70 20 131/68 H 97 10/13/18 07:58 10/13/18 14:43 10/13/18 16:15 10/13/18 07:58 10/13/18 16:15 Pulse Oximeter Continuous Start: 10/12/18 04:04 Freq: RTQ4 Status: Complete Protocol: Document 10/12/18 12:00 CHRISTEN (Rec: 10/12/18 13:04 [facility] [id number]) Pulse Oximetry Assessment Oxygen Saturation (92-100) 98 Equipment Usage Equipment Standby Continuous SpO2 Machine # 0 Additional RT Notes Other pt on er monitor Intake & Output 10/12/18 10/13/18 10/14/18 06:59 06:59 06:59 Intake Total 237 150 Balance 237 150 Weight 186.3 kg 180.7 kg General appearance: PRESENT: no acute distress, cooperative, morbidly obese, well-developed Head exam: PRESENT: atraumatic, normocephalic Eye exam: PRESENT: conjunctiva pink, EOMI, PERRLA. ABSENT: scleral icterus Mouth exam: PRESENT: moist, tongue midline Throat exam: PRESENT: post pharyngeal erythema, other - Postnasal drip Neck exam: ABSENT: carotid bruit, JVD, lymphadenopathy, thyromegaly Respiratory exam: PRESENT: clear to auscultation louisa, decreased breath sounds - Diminished throughout (type versus secondary to body habitus and poor inspiratory effort), tachypnea, other - On BiPAP. ABSENT: rales, rhonchi, wheezes Cardiovascular exam: PRESENT: RRR. ABSENT: diastolic murmur, rubs, systolic murmur Pulses: PRESENT: normal dorsalis pedis pul Vascular exam: PRESENT: normal capillary refill GI/Abdominal exam: PRESENT: soft. ABSENT: tenderness Rectal exam: PRESENT: deferred Extremities exam: PRESENT: full ROM. ABSENT: calf tenderness, clubbing, pedal edema, tenderness, +1 edema Neurological exam: PRESENT: alert, awake, oriented to person, oriented to place, oriented to time, oriented to situation, CN II-XII grossly intact. ABSENT: motor sensory deficit Psychiatric exam: PRESENT: appropriate affect, normal mood. ABSENT: homicidal ideation, suicidal ideation Skin exam: PRESENT: dry, intact, warm. ABSENT: cyanosis, rash Results Laboratory Results: 10/13/18 05:11 10/13/18 05:11 10/13/18 10/13/18 10/13/18 05:11 05:11 05:11 WBC 14.0 H RBC 4.31 Hgb 12.7 Hct 38.1 MCV 88 MCH 29.5 MCHC 33.3 RDW 13.7 Plt Count 275 Seg Neutrophils % 83.0 H Lymphocytes % 8.4 L Monocytes % 7.9 Eosinophils % 0.1 Basophils % 0.6 Absolute Neutrophils 11.6 H Absolute Lymphocytes 1.2 Absolute Monocytes 1.1 Absolute Eosinophils 0.0 Absolute Basophils 0.1 Carbonic Acid HCO3/H2CO3 Ratio ABG pH ABG pCO2 ABG pO2 ABG HCO3 ABG O2 Saturation ABG Base Excess FiO2 Sodium 142.7 Potassium 4.4 Chloride 104 Carbon Dioxide 27 Anion Gap 12 BUN 17 Creatinine 0.62 Est GFR ( Amer) > 60 Est GFR (Non-Af Amer) > 60 Glucose 124 H Calcium 9.7 Magnesium 2.6 H Total Bilirubin 0.9 AST 46 H ALT 24 Alkaline Phosphatase 83 Total Protein 7.6 Albumin 4.4 10/13/18 12:20 WBC RBC Hgb Hct MCV MCH MCHC RDW Plt Count Seg Neutrophils % Lymphocytes % Monocytes % Eosinophils % Basophils % Absolute Neutrophils Absolute Lymphocytes Absolute Monocytes Absolute Eosinophils Absolute Basophils Carbonic Acid 0.90 L HCO3/H2CO3 Ratio 26:1 ABG pH 7.52 H ABG pCO2 29.9 L ABG pO2 263.8 H ABG HCO3 24.1 H ABG O2 Saturation 99.7 H ABG Base Excess 2.0 FiO2 21% Sodium Potassium Chloride Carbon Dioxide Anion Gap BUN Creatinine Est GFR ( Amer) Est GFR (Non-Af Amer) Glucose Calcium Magnesium Total Bilirubin AST ALT Alkaline Phosphatase Total Protein Albumin 10/12/18 02:56 NT-Pro-B Natriuret Pep 181 H Impressions: Chest X-Ray 10/12/18 02:46 IMPRESSION: No acute cardiopulmonary abnormality copyright 2011 [employer]- All Rights Reserved Chest/Abdomen CTA 10/13/18 00:00 IMPRESSION: Negative examination for pulmonary embolism. Assessment & Plan - Diagnosis (1) Asthma attack Qualifiers: Asthma severity: moderate Asthma persistence: persistent Qualified Code(s): J45.41 - Moderate persistent asthma with (acute) exacerbation Is this a current diagnosis for this admission?: Yes Plan: Patient with continued complaint of tachypnea, dyspnea, air hunger, and left chest wall pain with deep inspiration and cough. She is reportedly been treated for the previous 2-3 weeks by her primary care provider and ED physicians with antibiotics and steroid therapy. She recently was provided a nebulizer machine and albuterol nebs without improvement in her symptoms. CTA of the chest was benign. ABG demonstrates respiratory alkalosis with PaO2 263 She is admitted to the medical floor continuous cardiac telemetry. She is provided supplemental oxygen as needed to maintain saturations >90%. Currently on BiPAP; We will placed on hold and obtain repeat ABG on room air after 1 hour. She is started on nightly Zyrtec. Scheduled and as needed nebulizer treatments. Continue Flonase. We will escalate steroids from prednisone to IV Solu-Medrol. (2) Allergic sinusitis Is this a current diagnosis for this admission?: Yes Plan: Start Zyrtec. Continue Flonase. (3) Diabetes Qualifiers: Diabetes mellitus type: type 2 Is this a current diagnosis for this admission?: No Plan: A1c 6.1%. The registered dietitian is consulted with recommendations for CCD for an cardiac diet. We will continue to monitor Accu-Cheks before meals and at bedtime with Humalog for sliding scale coverage as the patient is now on steroid therapy. Hypoglycemia protocol in place. (4) GERD (gastroesophageal reflux disease) Is this a current diagnosis for this admission?: Yes Plan: Protonix twice daily. Reflux precautions. (5) Morbid obesity Is this a current diagnosis for this admission?: Yes Plan: Dietary discretion is advised. The registered dietitian has been consulted. - Time Time Spent with patient: 25-34 minutes Medications reviewed and adjusted accordingly: Yes Anticipated discharge: Home
[2018-10-13] MEDS ORDERED: FLUTICASONE NASAL SPRAY 50 MCG/SPRY 120 SPRAY/16 GM ONE (18:14)
[2018-10-13 19:24] LABS: ARTERIAL BLOOD BASE EXCESS -0.9 mmol/L; ARTERIAL BLOOD H2CO3 1.18 mmol/L (1.05-1.35); ARTERIAL BLOOD HCO3 23.7 mmol/L (20-24); ARTERIAL BLOOD O2 SATURATION 97.2 % (94-98); ARTERIAL BLOOD PCO2 39.1 mmHg (35-45); ARTERIAL BLOOD PO2 93.7 mmHg (80-100); ARTERIAL BLOOD TOTAL CO2 24.9 mmol/L (21-25)
[2018-10-13 19:25] LABS: ARTERIAL BLOOD FIO2 21%
[2018-10-13] MEDS: PREDNISONE 20 MG TABLET PO SCH (20:37)
[2018-10-13] MEDS: METHYLPREDNISOLONE INJ 40 MG/1 ML SDV IV SCH (21:32)
[2018-10-13] MEDS: CETIRIZINE 10 MG TABLET PO SCH (21:33)
[2018-10-14] MEDS: IPRATROPIUM/ALBUTEROL 0.5-2.5 MG/3 ML AMPUL NEB SCH ×4 (01:46→23:50)
[2018-10-14 05:18] LABS: HEMATOCRIT 36.1 % (36.0-47.0); HEMOGLOBIN 12.2 g/dL (12.0-15.5); MEAN CORPUSCULAR HEMOGLOBIN 29.8 pg (27.0-33.4); MEAN CORPUSCULAR HGB CONC 33.8 g/dL (32.0-36.0); MEAN CORPUSCULAR VOLUME 88 fl (80-97); PLATELET COUNT 303 10^3/uL (150-450); RED CELL DISTRIBUTION WIDTH 13.5 % (11.5-14.0); WHITE BLOOD COUNT 13.4 10^3/uL (4.0-10.5)
[2018-10-14] MEDS: FLUTICASONE NASAL SPRAY 50 MCG/SPRY 120 SPRAY/16 GM NASL SCH ×2 (06:12→17:17)
[2018-10-14] MEDS: HEPARIN SOD (PORCINE) 5,000 UNIT/ML 1 ML SYRINGE SUBCUT SCH ×3 (06:12→21:15)
[2018-10-14] MEDS: LEVOFLOXACIN 750 MG/D5W RTU 750 MG/150 ML RTUPB IV SCH (06:13)
[2018-10-14] MEDS: PANTOPRAZOLE SODIUM 40 MG TABLET.DR PO SCH ×2 (06:13→17:16)
[2018-10-14] MEDS: BENZONATATE 100 MG CAPSULE PO PRN ×2 (06:13→15:21)
[2018-10-14] MEDS: GABAPENTIN 300 MG CAPSULE PO SCH ×3 (06:13→21:15)
[2018-10-14] MEDS: METHYLPREDNISOLONE INJ 40 MG/1 ML SDV IV SCH ×2 (06:13→15:21)
[2018-10-14] MEDS: INSULIN LISPRO 100 UNIT/ML 3 ML VIAL SUBCUT SCH ×3 (09:29→17:16)
[2018-10-14] MEDS ORDERED: LORAZEPAM INJ 2 MG/1 ML VIAL IV ONE (11:00)
[2018-10-14] MEDS: BENZOCAINE/MENTHOL SORE THROAT LOZENGE BUCCAL PRN (15:21)
--- NOTE | 2018-10-14 16:23 | PDOC PROGRESS REPORT ---
Subjective Progress Note for:: 10/14/18 Subjective:: NANCY REICH is a 48 year old female with a past medical history of remote gastric bypass with persistent morbid obesity, GERD and persistent asthma with exacerbation of the last 2 weeks associated with rhinorrhea, GERD and nonproductive cough who was admitted 10/12/2018 for asthma exacerbation The patient is seen on afternoon rounds with several friends and family members present. She is found sitting upright in bed on supplemental oxygen via NC. The oxygen was turned off, was in the room and the patient continued to speak in full sentences, without tachypnea, while maintaining her oxygen saturations in the high 90s. She reports continued dyspnea and frequent nonproductive cough that is worse at night. She also complains of rhinorrhea, postnasal drip, and sore throat. She denies fever, chills, chest pain, palpitations, orthopnea, abdominal pain, nausea vomiting and diarrhea. She has no other questions or concerns at this time. No concerns per nursing. Reason For Visit: ACUTE BRONCITIS, ASTHMA, DIABETES GERD MORBID Physical Exam Vital Signs: Temp Pulse Resp BP Pulse Ox 98.9 F 69 20 118/69 97 10/14/18 11:43 10/14/18 15:12 10/14/18 15:12 10/14/18 11:43 10/14/18 11:43 Pulse Oximeter Continuous Start: 10/12/18 04:04 Freq: RTQ4 Status: Complete Protocol: Document 10/12/18 12:00 CHRISTEN (Rec: 10/12/18 13:04 J [id number]) Pulse Oximetry Assessment Oxygen Saturation (92-100) 98 Equipment Usage Equipment Standby Continuous SpO2 Machine # 0 Additional RT Notes Other pt on er monitor Intake & Output 10/13/18 10/14/18 10/15/18 06:59 06:59 06:59 Intake Total 237 1303 150 Balance 237 1303 150 Weight 180.7 kg 180.4 kg General appearance: PRESENT: no acute distress, cooperative, morbidly obese, well-developed Head exam: PRESENT: atraumatic, normocephalic Eye exam: PRESENT: conjunctiva pink, EOMI, PERRLA Mouth exam: PRESENT: moist Throat exam: PRESENT: post pharyngeal erythema, other - post nasal drip Respiratory exam: PRESENT: clear to auscultation louisa - Throughout, symmetrical, unlabored. ABSENT: accessory muscle use, retraction, rhonchi, wheezes Cardiovascular exam: PRESENT: RRR Vascular exam: PRESENT: normal capillary refill Rectal exam: PRESENT: deferred Extremities exam: PRESENT: full ROM Musculoskeletal exam: PRESENT: ambulatory Neurological exam: PRESENT: alert, awake, oriented to person, oriented to place, oriented to time, oriented to situation, CN II-XII grossly intact. ABSENT: m otor sensory deficit Psychiatric exam: PRESENT: appropriate affect, normal mood. ABSENT: homicidal ideation, suicidal ideation Skin exam: PRESENT: dry, intact, warm. ABSENT: cyanosis, rash Results Laboratory Results: 10/14/18 04:24 10/13/18 05:11 10/13/18 10/13/18 10/14/18 17:38 19:13 04:24 WBC 13.4 H RBC 4.10 Hgb 12.2 Hct 36.1 MCV 88 MCH 29.8 MCHC 33.8 RDW 13.5 Plt Count 303 Carbonic Acid Cancelled 1.18 HCO3/H2CO3 Ratio Cancelled 20:1 ABG pH Cancelled 7.40 ABG pCO2 Cancelled 39.1 ABG pO2 Cancelled 93.7 ABG HCO3 Cancelled 23.7 ABG O2 Saturation Cancelled 97.2 ABG Base Excess Cancelled -0.9 FiO2 Cancelled 21% 10/12/18 02:56 NT-Pro-B Natriuret Pep 181 H Impressions: Chest X-Ray 10/12/18 02:46 IMPRESSION: No acute cardiopulmonary abnormality copyright 2011 [employer]- All Rights Reserved Chest/Abdomen CTA 10/13/18 00:00 IMPRESSION: Negative examination for pulmonary embolism. Assessment & Plan - Diagnosis (1) Asthma attack Qualifiers: Asthma severity: moderate Asthma persistence: persistent Qualified Code(s): J45.41 - Moderate persistent asthma with (acute) exacerbation Is this a current diagnosis for this admission?: Yes Plan: Improved. Patient with continued complaint of tachypnea, dyspnea, air hunger, and left chest wall pain with deep inspiration and cough. She is reportedly been treated for the previous 2-3 weeks by her primary care provider and ED physicians with antibiotics and steroid therapy. She recently was provided a nebulizer machine and albuterol nebs without improvement in her symptoms. CTA of the chest was benign. ABG on BiPAP demonstrates respiratory alkalosis with PaO2 263 ABG on room air is normal. She is admitted to the medical floor continuous cardiac telemetry. She is provided supplemental oxygen as needed to maintain saturations >90%. She is started on nightly Zyrtec. Scheduled and as needed nebulizer treatments. Continue Flonase. Continue IV Solu-Medrol, will decrease dose today. Continue scheduled and as needed nebulizer treatment; will decrease frequency today. Protonix twice daily, Reglan nightly. (2) Allergic sinusitis Is this a current diagnosis for this admission?: Yes Plan: Start Zyrtec. Continue Flonase. (3) Diabetes Qualifiers: Diabetes mellitus type: type 2 Is this a current diagnosis for this admission?: No Plan: A1c 6.1%. The registered dietitian is consulted with recommendations for CCD for an cardiac diet. We will continue to monitor Accu-Cheks before meals and at bedtime with Humalog for sliding scale coverage as the patient is now on steroid therapy. Hypoglycemia protocol in place. (4) GERD (gastroesophageal reflux disease) Is this a current diagnosis for this admission?: Yes Plan: Protonix twice daily. Reglan nightly. Reflux precautions. (5) Morbid obesity Is this a current diagnosis for this admission?: Yes Plan: Dietary discretion is advised. The registered dietitian has been consulted. - Time Time Spent with patient: 15-24 minutes Medications reviewed and adjusted accordingly: Yes Anticipated discharge: Home Within: within 24 hours
[2018-10-14] MEDS: METOCLOPRAMIDE HCL 10 MG TABLET PO SCH (21:15)
[2018-10-14] MEDS: CETIRIZINE 10 MG TABLET PO SCH (21:15)
[2018-10-15] MEDS: FLUTICASONE NASAL SPRAY 50 MCG/SPRY 120 SPRAY/16 GM NASL SCH ×2 (05:25→17:30)
[2018-10-15] MEDS: METHYLPREDNISOLONE INJ 40 MG/1 ML SDV IV SCH ×3 (05:25→21:22)
[2018-10-15] MEDS: HEPARIN SOD (PORCINE) 5,000 UNIT/ML 1 ML SYRINGE SUBCUT SCH ×3 (05:25→21:23)
[2018-10-15] MEDS: PANTOPRAZOLE SODIUM 40 MG TABLET.DR PO SCH ×2 (05:26→17:30)
[2018-10-15] MEDS: GABAPENTIN 300 MG CAPSULE PO SCH ×3 (05:26→21:21)
[2018-10-15] MEDS: GUAIFENESIN/D-METHORPHAN (200-20 MG) SYRUP 10 ML PO PRN ×2 (05:38→17:34)
[2018-10-15] MEDS: IPRATROPIUM/ALBUTEROL 0.5-2.5 MG/3 ML AMPUL NEB SCH ×2 (07:41→15:36)
[2018-10-15] MEDS: INSULIN LISPRO 100 UNIT/ML 3 ML VIAL SUBCUT SCH ×3 (09:36→16:47)
[2018-10-15] MEDS: LEVOFLOXACIN 750 MG TABLET PO SCH (09:47)
--- NOTE | 2018-10-15 13:57 | PDOC PROGRESS REPORT ---
Subjective Progress Note for:: 10/15/18 Subjective:: NANCY REICH is a 48 year old female with a past medical history of remote gastric bypass with persistent morbid obesity, GERD and persistent asthma with exacerbation of the last 2 weeks associated with rhinorrhea, GERD and nonproductive cough who was admitted 10/12/2018 for asthma exacerbation The patient is seen on morning rounds. She is found sitting upright in the recliner, comfortably eating her lunch, on room air. She reports continued dyspnea on exertion, paroxysmal nonproductive cough, and wheezing. Overall, she does report that she feels slightly better. She denies fever, chills, chest pain, palpitations, orthopnea, abdominal pain, nausea vomiting and diarrhea. She has no other questions or concerns at this time. No concerns per nursing. Reason For Visit: ACUTE BRONCITIS, ASTHMA, DIABETES GERD MORBID Physical Exam Vital Signs: Temp Pulse Resp BP Pulse Ox 98.3 F 88 18 132/78 H 95 10/15/18 11:42 10/15/18 11:42 10/15/18 11:42 10/15/18 11:42 10/15/18 11:42 Pulse Oximeter Continuous Start: 10/12/18 04:04 Freq: RTQ4 Status: Complete Protocol: Document 10/12/18 12:00 J (Rec: 10/12/18 13:04 [id number]) Pulse Oximetry Assessment Oxygen Saturation (92-100) 98 Equipment Usage Equipment Standby Continuous SpO2 Machine # 0 Additional RT Notes Other pt on er monitor Intake & Output 10/14/18 10/15/18 10/16/18 06:59 06:59 06:59 Intake Total 1303 2100 Balance 1303 2100 Weight 180.4 kg 179.4 kg General appearance: PRESENT: no acute distress, morbidly obese, well-developed, well-nourished Head exam: PRESENT: atraumatic, normocephalic Eye exam: PRESENT: conjunctiva pink, EOMI, PERRLA Mouth exam: PRESENT: moist, tongue midline Throat exam: PRESENT: post pharyngeal erythema Respiratory exam: PRESENT: decreased breath sounds - Secondary to body habitus and poor inspiratory effort, rhonchi, symmetrical, unlabored, wheezes - Slight expiratory wheeze right middle lobe. ABSENT: rales Cardiovascular exam: PRESENT: RRR, +S1, +S2 Vascular exam: PRESENT: normal capillary refill Extremities exam: PRESENT: full ROM, tenderness - Bilateral knees; left greater than right. ABSENT: calf tenderness, clubbing, pedal edema Musculoskeletal exam: PRESENT: ambulatory Neurological exam: PRESENT: alert, awake, oriented to person, oriented to place, oriented to time, oriented to situation, CN II-XII grossly intact. ABSENT: mo tor sensory deficit Psychiatric exam: PRESENT: appropriate affect, normal mood. ABSENT: homicidal ideation, suicidal ideation Skin exam: PRESENT: dry, intact, warm. ABSENT: cyanosis, rash Results Laboratory Results: 10/14/18 04:24 10/13/18 05:11 10/13/18 18:35 Throat Throat Culture - Final NORMAL IVY 10/12/18 02:56 NT-Pro-B Natriuret Pep 181 H Impressions: Chest X-Ray 10/12/18 02:46 IMPRESSION: No acute cardiopulmonary abnormality copyright 2011 [employer]- All Rights Reserved Chest/Abdomen CTA 10/13/18 00:00 IMPRESSION: Negative examination for pulmonary embolism. Assessment & Plan - Diagnosis (1) Asthma attack Qualifiers: Asthma severity: moderate Asthma persistence: persistent Qualified Code(s): J45.41 - Moderate persistent asthma with (acute) exacerbation Is this a current diagnosis for this admission?: Yes Plan: Improved. Patient now able to maintain oxygen saturations on room air while at rest; does continue to require oxygen when ambulatory. CTA of the chest was benign. ABG on BiPAP demonstrates respiratory alkalosis with PaO2 263 ABG on room air is normal. She is admitted to the medical floor continuous cardiac telemetry. She is provided supplemental oxygen as needed to maintain saturations >90%. She is started on nightly Zyrtec. Scheduled and as needed nebulizer treatments. Continue Flonase. Continue IV Solu-Medrol. Continue scheduled and as needed nebulizer treatment; will decrease frequency today. Protonix twice daily, Reglan nightly. Have consulted pulmonology; appreciate Dr. Kong's assistance. (2) Allergic sinusitis Is this a current diagnosis for this admission?: Yes Plan: Start Zyrtec. Continue Flonase. (3) Diabetes Qualifiers: Diabetes mellitus type: type 2 Is this a current diagnosis for this admission?: No Plan: A1c 6.1%. The registered dietitian is consulted with recommendations for CCD for an cardiac diet. We will continue to monitor Accu-Cheks before meals and at bedtime with Humalog for sliding scale coverage as the patient is now on steroid therapy. Hypoglycemia protocol in place. (4) GERD (gastroesophageal reflux disease) Is this a current diagnosis for this admission?: Yes Plan: Protonix twice daily. Reglan nightly. Reflux precautions. (5) Morbid obesity Is this a current diagnosis for this admission?: Yes Plan: Dietary discretion is advised. The registered dietitian has been consulted. - Time Time Spent with patient: Less than 15 minutes Medications reviewed and adjusted accordingly: Yes Anticipated discharge: Home Within: within 48 hours
--- NOTE | 2018-10-15 14:10 | PDOC CONSULTATION ---
Consultation Consult Date: 10/15/18 Attending physician:: MK JUÁREZ Consult reason:: wheezing History of Present Illness Admission Date/PCP: 10/12/18 04:04 VITALIY PURVIS PA-C History of Present Illness: NANCY REICH is a 48 year old female is been ongoing cough and shortness of breath for over a month which did not improve although she had a waxing and waning of the coughing will awaken her from sleep a cough was frequently nonproductive but occasional scant phlegm no hemoptysis PPD negative dates unknown denies history of chronic lung disease as a child around adolescent admits to exposure to passive smoke as a child as well as an adult. She herself has never smoked. She denies significant occupational exposure to potential respiratory toxins. She has no pets no recent travel she has occasional tightness in her chest sleeps on 2 pillows occasional PND occasional nocturnal cough chronic edema she had a history of sleep apnea and past but had gastric bypass surgery and no longer wears her CPAP. Past Medical History Cardiac Medical History: Reports: Hypertension - no meds Denies: Myocardial Infarction Pulmonary Medical History: Reports: Asthma - NO MEDS, Sleep Apnea Neurological Medical History: Reports: Seizures - FEBRILE A TODDLER Endocrine Medical History: Reports: Diabetes Mellitus Type 2 - no meds, Obesity Malignancy Medical History: Reports: None GI Medical History: Reports: Gastroesophageal Reflux Disease, Hiatal Hernia Denies: Hepatitis Musculoskeltal Medical History: Reports: Arthritis Skin Medical History: Denies: Eczema, Psoriasis Psychiatric Medical History: Reports: None, Depression Traumatic Medical History: Denies: Traumatic Brain Injury Hematology: Denies: Anemia, Sickle Cell Disease Past Surgical History Past Surgical History: Denies: Amputation, Hysterectomy, Mastectomy, Pacemaker Social History Information Source: Patient, [facility] Records Lives with: Friend, Grandparent(s) Smoking Status: Never Smoker Passive smoke exposure as: Both Frequency of Alcohol Use: Occasional Drugs: None Hx Prescription Drug Abuse: No Do you have pets?: No Have you had any respiratory illnesses as a child?: No Have you been exposed to any sick contacts recently?: No Have you had any recent respiratory illnesses?: No Have you travelled outside of [place] in the past 12 months?: No - Advance Directive Resuscitation Status: Full Code Family History Family History: COPD, DM, Hypertension, Malignancy Parental Family History Reviewed: Yes Children Family History Reviewed: Yes Sibling(s) Family History Reviewed.: Yes Medication/Allergy Home Medications: Albuterol Sulfate [Ventolin 0.083% Neb 2.5 mg/3 ml Ampul] 1 vial NEB RTQ6HP PRN 10/12/18 Benzonatate [Tessalon Perles 100 mg Capsule] 100 mg PO Q8HP PRN 10/12/18 Celecoxib [Celebrex 100 mg Capsule] 100 mg PO BID 10/12/18 Diclofenac Sodium [Voltaren] 200 gm TP QID 10/12/18 Gabapentin [Neurontin 300 mg Capsule] 300 mg PO Q8 10/12/18 Tramadol HCl [Ultram 50 mg Tablet] 50 mg PO Q6HP PRN 10/12/18 Allergies/Adverse Reactions: erythromycin lactobionate [From Erythrocin] Allergy (Verified 09/27/18 16:45) rash Review of Systems Constitutional: PRESENT: fatigue, weakness. ABSENT: anorexia, chills, night sweats Eyes: ABSENT: visual disturbances Ears: ABSENT: hearing changes Nose, Mouth, and Throat: PRESENT: sore throat. ABSENT: mouth pain Cardiovascular: PRESENT: dyspnea on exertion. ABSENT: orthropnea, palpitations Respiratory: PRESENT: cough, sputum Gastrointestinal: ABSENT: abdominal pain, bloating, coffee ground emesis, dysphagia, hematemesis, hematochezia, melena Genitourinary: ABSENT: dysuria, hematuria Musculoskeletal: ABSENT: deformity, joint swelling Integumentary: ABSENT: pruritus, rash Neurological: ABSENT: abnormal gait, abnormal movements, abnormal speech, confusion, focal weakness, frequent falls, lack of coordination, memory loss, numbness, paresthesias Psychiatric: ABSENT: hallucinations, homidical ideation, suicidal ideation Endocrine: ABSENT: cold intolerance, heat intolerance, polydipsia, polyuria Hematologic/Lymphatic: ABSENT: easy bruising, lymphadenopathy Allergic/Immunologic: ABSENT: seasonal rhinorrhea Physical Exam Vital Signs: Temp Pulse Resp BP Pulse Ox 98.3 F 88 18 132/78 H 95 10/15/18 11:42 10/15/18 11:42 10/15/18 11:42 10/15/18 11:42 10/15/18 11:42 Pulse Oximeter Continuous Start: 10/12/18 04:04 Freq: RTQ4 Status: Complete Protocol: Document 10/12/18 12:00 JDR (Rec: 10/12/18 13:04 [id number]) Pulse Oximetry Assessment Oxygen Saturation (92-100) 98 Equipment Usage Equipment Standby Continuous SpO2 Machine # 0 Additional RT Notes Other pt on er monitor Intake & Output 10/14/18 10/15/18 10/16/18 06:59 06:59 06:59 Intake Total 1303 2100 Balance 1303 2100 Weight 180.4 kg 179.4 kg General appearance: PRESENT: no acute distress, cooperative, disheveled, morbidly obese Head exam: PRESENT: atraumatic, normocephalic Eye exam: PRESENT: conjunctiva pale, EOMI. ABSENT: nystagmus, periorbital swelling, scleral icterus Mouth exam: PRESENT: dry mucosa, neck supple, tongue midline Neck exam: PRESENT: tenderness, thyromegaly. ABSENT: carotid bruit, full ROM, JVD, lymphadenopathy, meningismus, tracheal deviation, tracheostomy, other Respiratory exam: PRESENT: decreased breath sounds, prolonged expiratory phas, rales, rhonchi, unlabored, wheezes. ABSENT: retraction, stridor Cardiovascular exam: PRESENT: RRR, +S1, +S2 Pulses: PRESENT: normal radial pulses GI/Abdominal exam: PRESENT: soft. ABSENT: tenderness Extremities exam: ABSENT: calf tenderness, clubbing Musculoskeletal exam: ABSENT: deformity, dislocation Neurological exam: PRESENT: alert, awake Psychiatric exam: PRESENT: appropriate affect Skin exam: PRESENT: dry, warm Results Laboratory Results: 10/14/18 04:24 10/13/18 05:11 10/13/18 18:35 Throat Throat Culture - Final NORMAL IVY 10/12/18 02:56 NT-Pro-B Natriuret Pep 181 H Impressions: Chest X-Ray 10/12/18 02:46 IMPRESSION: No acute cardiopulmonary abnormality copyright 2011 [employer]- All Rights Reserved Chest/Abdomen CTA 10/13/18 00:00 IMPRESSION: Negative examination for pulmonary embolism. Assessment & Plan - Diagnosis (1) Obstructive sleep apnea (adult) (pediatric) Is this a current diagnosis for this admission?: Yes Plan: Patient does feel better on CPAP she discontinued CPAP after she lost 160 pounds on bypass surgery however due to recent ankle injury she has gained 50-60 of th darrell pounds back should be retested for LILLIE after discharge (2) Asthma attack Qualifiers: Asthma severity: moderate Asthma persistence: persistent Qualified Code(s): J45.41 - Moderate persistent asthma with (acute) exacerbation Is this a current diagnosis for this admission?: Yes Plan: Inhaled corticosteroid (3) GERD (gastroesophageal reflux disease) Is this a current diagnosis for this admission?: Yes Plan: Modified barium swallow and esophagram (4) Morbid obesity Is this a current diagnosis for this admission?: Yes Plan: Nutritional consult
[2018-10-15] MEDS: BUDESONIDE NEB 0.5 MG/2 ML AMPUL NEB SCH ×2 (14:45→19:18)
[2018-10-15] MEDS: BENZONATATE 100 MG CAPSULE PO PRN (17:34)
[2018-10-15] MEDS: CELECOXIB 100 MG CAPSULE PO SCH (17:36)
[2018-10-15] MEDS: CETIRIZINE 10 MG TABLET PO SCH (21:21)
[2018-10-15] MEDS: METOCLOPRAMIDE HCL 10 MG TABLET PO SCH (21:21)
[2018-10-16] MEDS: IPRATROPIUM/ALBUTEROL 0.5-2.5 MG/3 ML AMPUL NEB SCH ×4 (00:46→23:48)
[2018-10-16] MEDS: PANTOPRAZOLE SODIUM 40 MG TABLET.DR PO SCH ×2 (06:11→17:14)
[2018-10-16] MEDS: GABAPENTIN 300 MG CAPSULE PO SCH ×3 (06:11→21:21)
[2018-10-16] MEDS: HEPARIN SOD (PORCINE) 5,000 UNIT/ML 1 ML SYRINGE SUBCUT SCH ×3 (06:12→21:25)
[2018-10-16] MEDS: METHYLPREDNISOLONE INJ 40 MG/1 ML SDV IV SCH ×3 (06:13→21:26)
[2018-10-16] MEDS: FLUTICASONE NASAL SPRAY 50 MCG/SPRY 120 SPRAY/16 GM NASL SCH ×2 (06:15→17:14)
[2018-10-16] MEDS: BENZONATATE 100 MG CAPSULE PO PRN ×2 (06:17→14:20)
[2018-10-16] MEDS: GUAIFENESIN SYRP 200 MG/10 ML UDC PO PRN ×2 (06:17→21:26)
[2018-10-16] MEDS: BENZOCAINE/MENTHOL SORE THROAT LOZENGE BUCCAL PRN ×5 (06:19→21:21)
[2018-10-16] MEDS: BUDESONIDE NEB 0.5 MG/2 ML AMPUL NEB SCH ×2 (07:34→19:25)
[2018-10-16] MEDS: INSULIN LISPRO 100 UNIT/ML 3 ML VIAL SUBCUT SCH ×3 (08:49→17:22)
[2018-10-16] MEDS: CELECOXIB 100 MG CAPSULE PO SCH ×2 (09:05→17:14)
[2018-10-16] MEDS: LEVOFLOXACIN 750 MG TABLET PO SCH (09:05)
--- NOTE | 2018-10-16 10:06 | RADIOLOGY REPORT (SQ) ---
EXAM DESCRIPTION: REJI SWALLOW COMPLETED DATE/TIME: 10/16/2018 9:57 am REASON FOR STUDY: wheezing prn(FEES) dysphasia COMPARISON: None. TECHNIQUE: Videofluoroscopic swallowing examination was performed in conjunction with speech patholo gy. Videofluoroscopic imaging was obtained and reviewed and these are the findings: RADIATION DOSE: 1 minutes 2 seconds of fluoroscopy was used. 2 images saved to PACS. LIMITATIONS: None FINDINGS: The patient was brought into the fluoro room and placed upright on a modified barium swall ow chair. The patient was then given multiple consistencies mixed with barium to swallow under live fluoroscopic video guidance. According to the Speech Pathologist there was no penetration or aspirat ion. IMPRESSION: NO EVIDENCE OF PENETRATION OR ASPIRATION. PLEASE SEE SPEECH PATHOLOGIST REPORT FOR OTHER FINDINGS AND RECOMMENDATIONS. COMMENT: Quality ID 145: Final reports for procedures using fluoroscopy that document radiation exp osure indices, or exposure time and number of fluorographic images (if radiation exposure indices are not available) TECHNICAL DOCUMENTATION: JOB ID: [id number] [employer]- All Rights Reserved Reading location - IP/workstation name: [email or web address]
--- NOTE | 2018-10-16 10:13 | ST Inp Modified Barium Swallow ---
Medical Diagnosis - Medical Diagnoses Medical Diagnosis Description & ICD-10 Code(s): asthma attack - ICD-10 Tx Diagnosis Coding (1) Dysphagia ICD-10 Code(s): R13.10 - DYSPHAGIA, UNSPECIFIED ST Inpatient [facility] [place] - General Date: 10/16/18 Date of Onset: 10/12/18 - admit date, date of onset unclear - History History Obtained From: Other - EMR -: Medical - per EMR: patient was admitted 10/12/18 with asthma exacerbation. Prior medical history includes morbid obesity, GERD, persistent asthma, rhinorrhea, nonproductive cough. Medications: Medications Reviewed Allergies: Refer to medical record - Subjective Current Nutritional Means: PO Current PO Diet: Regular Current Symptoms: Coughing Pain: Patient reports, 1/5 - left side pain - Objective Assessment: Upright, Left Lateral - Food Trials Food Trials Used: Thin liquids, Pureed, Regular The Patient: Was Able to Self Feed - Assessment Labial Function: Within Normal Limits Lingual Function: Within Normal Limits Mandibular Function: Within Normal Limits Dentition: Full Velo-Pharyngeal Function: Unremarkable Laryngeal Function: weak voicing - likely due to chronic cough - Pharyngeal Stage Initiation of Pharyngeal Stage: Normal Decreased Laryngeal Elevation: No Reduced Pressure Generation: No Reduced Tongue Base Retraction: No Pre-Swallowing Pooling in Valleculae: None Pre-Swallowing Pooling in Pyriforms: None Reduced Thyro-Hyiod Approximation: No Reduced Epiglottic Excursion: No Reduced Pharyngeal Peristalsis: No Multiple Swallows With: Cleared w/ Dry Swallow Post Swallow Residuals: throughout pharynx - cleared easily with spontaneous second swallow - Esophageal Stage Esophageal Stage Comments: patient scheduled for barium swallow following modified study - Impression/Summary Laryngeal Penetration: No Tracheal Aspiration: no Compensatory Strategies: second swallow, using spontaneously Patient Presents With: Normal swallow at eval Risk of Aspiration: Minimal Risk of Nutritional Compromise: None - Recommendations Solid Diet Recommendations: Regular Liquid Diet Recommendations: Thin Dysphagia Therapy with TRANSFER TABLE OPERATOR: No Supervision: Independent - Time Total Time: 20 Total Timed Minutes: 20
[2018-10-16] MEDS: GUAIFENESIN/D-METHORPHAN (200-20 MG) SYRUP 10 ML PO PRN (13:08)
--- NOTE | 2018-10-16 13:27 | RADIOLOGY REPORT (SQ) ---
EXAM DESCRIPTION: BARIUM SWALLOW ESOPHAGUS COMPLETED DATE/TIME: 10/16/2018 10:04 am REASON FOR STUDY: h hernia DYSPHAGIA COMPARISON: None. TECHNIQUE: Under fluoroscopic guidance, patient ingested effervescent granules followed by thick and thin barium. Fluoroscopic spot images and routine radiographic images acquired and stored on PACS. 12 MM BARIUM TABLET GIVEN: Yes. No significant delay in passage. LIMITATIONS: Upright imaging could only pre performed due to large body habitus. FLUOROSCOPY TIME: FLUORO TIME: 1 minutes 8 seconds of fluoroscopy was used. 13 images saved to PACS. FINDINGS: NEUROMUSCULAR COORDINATION OF SWALLOW: Normal. No aspiration. ESOPHAGEAL MOTILITY: Normal peristalsis. No esophageal spasm. ESOPHAGEAL MUCOSA: Normal mucosa without masses or ulceration. GASTRO-ESOPHAGEAL JUNCTION: No hiatal hernia or reflux. 12 mm barium tablet passed through the GE ju nction without delay. Postop vision changes seen in the proximal stomach from previous gastric bypas s surgery. Gastric pouch appears normal. There is free emptying of contrast into this proximal smal l bowel. No evidence of strictures. Anastomosis appear patent. NON-GI TRACT STRUCTURES: No significant finding. OTHER: No other significant finding. IMPRESSION: NORMAL POSTOPERATIVE DOUBLE CONTRAST BARIUM SWALLOW. COMMENT: Quality ID 145: Final reports for procedures using fluoroscopy that document radiation exp osure indices, or exposure time and number of fluorographic images (if radiation exposure indices are not available) TECHNICAL DOCUMENTATION: JOB ID: [id number] [employer]- All Rights Reserved Reading location - IP/workstation name: [email or web address] [id number]
--- NOTE | 2018-10-16 18:11 | PDOC PROGRESS REPORT ---
Subjective Progress Note for:: 10/16/18 Subjective:: Patient is sitting in the chair. She is currently on room air. She still has an intermittent cough. She still feels short of breath at times especially with even minimal exertion. Reason For Visit: ACUTE BRONCITIS, ASTHMA, DIABETES GERD MORBID Physical Exam Vital Signs: Temp Pulse Resp BP Pulse Ox 98.1 F 89 21 H 140/85 H 96 10/16/18 11:58 10/16/18 14:00 10/16/18 11:58 10/16/18 11:58 10/16/18 11:58 Pulse Oximeter Continuous Start: 10/12/18 04:04 Freq: RTQ4 Status: Complete Protocol: Document 10/12/18 12:00 JDR (Rec: 10/12/18 13:04 [id number]) Pulse Oximetry Assessment Oxygen Saturation (92-100) 98 Equipment Usage Equipment Standby Continuous SpO2 Machine # 0 Additional RT Notes Other pt on er monitor Pulse Oximeter Nocturnal Start: 10/15/18 13:30 Freq: RTQ4 Status: Complete Protocol: Document 10/16/18 06:27 CMI (Rec: 10/16/18 06:27 CMI [id number]) Nocturnal Pulse Oximetry Equipment Usage Equipment Discontinued Continuous SpO2 Machine # 11 Intake & Output 10/15/18 10/16/18 10/17/18 06:59 06:59 06:59 Intake Total 2100 1700 Balance 2100 1700 Weight 179.4 kg 180.2 kg General appearance: PRESENT: cooperative, mild distress, morbidly obese, well-developed Head exam: PRESENT: normocephalic Eye exam: PRESENT: conjunctiva pink. ABSENT: scleral icterus Ear exam: PRESENT: normal external ear exam Mouth exam: PRESENT: moist, tongue midline Neck exam: PRESENT: other - Very large neck. ABSENT: carotid bruit, lymphadenopathy Respiratory exam: PRESENT: clear to auscultation louisa, symmetrical. ABSENT: accessory muscle use, crackles, rales, rhonchi, wheezes Cardiovascular exam: PRESENT: RRR, +S1, +S2 GI/Abdominal exam: PRESENT: soft, other - Pendulous abdomen. ABSENT: ascites, tenderness Rectal exam: PRESENT: deferred Gentrourinary exam: ABSENT: indwelling catheter Extremities exam: ABSENT: pedal edema Neurological exam: PRESENT: alert, awake, oriented to person, oriented to place, oriented to time, oriented to situation, CN II-XII grossly intact Psychiatric exam: PRESENT: appropriate affect. ABSENT: agitated, anxious Focused psych exam: ABSENT: delusional, restlessness Skin exam: PRESENT: dry, normal color, warm. ABSENT: rash Results Laboratory Results: 10/14/18 04:24 10/13/18 05:11 10/13/18 18:35 Throat Throat Culture - Final NORMAL IVY 10/12/18 02:56 NT-Pro-B Natriuret Pep 181 H Impressions: Chest X-Ray 10/12/18 02:46 IMPRESSION: No acute cardiopulmonary abnormality copyright 2010 [employer]- All Rights Reserved Chest/Abdomen CTA 10/13/18 00:00 IMPRESSION: Negative examination for pulmonary embolism. Esophagus X-Ray 10/16/18 00:00 IMPRESSION: NORMAL POSTOPERATIVE DOUBLE CONTRAST BARIUM SWALLOW. Modified Barium Swallow 10/16/18 00:00 IMPRESSION: NO EVIDENCE OF PENETRATION OR ASPIRATION. PLEASE SEE SPEECH PATHOLOGIST REPORT FOR OTHER FINDINGS AND RECOMMENDATIONS. Assessment and Plan - Diagnosis (1) Asthma attack Qualifiers: Asthma severity: moderate Asthma persistence: persistent Qualified Code(s): J45.41 - Moderate persistent asthma with (acute) exacerbation Is this a current diagnosis for this admission?: Yes Plan: 10/16/18 18:05 Please also see pulmonology note. The patient is slowly improving. We are weaning her to room air. She in fact is stable on room air at rest but minimal exertion typically requires oxygen supplementation. She has been off of the BiPAP today as well. We will continue the IV Solu-Medrol as well as the Flonase and Zyrtec. She did have a modified barium swallow to rule out aspiration and this was negative for any aspiration. She may require oxygen at home. (2) Acute respiratory failure with hypoxia Is this a current diagnosis for this admission?: Yes Plan: 10/16/18 18:08 Secondary to asthma. The patient has required supplemental oxygen as well as BiPAP to maintain oxygen saturation above 90%. She is currently able to tolerate room air at rest. We will continue to monitor for hypoxia with exertion and supplement oxygen accordingly. (3) Allergic sinusitis Is this a current diagnosis for this admission?: Yes Plan: 10/16/18 18:10 In addition to the intravenous Solu-Medrol the patient is on Flonase and Zyrtec. Continue aggressive therapy. The patient does not appear to have any sinus congestion at this time. (4) Diabetes Qualifiers: Diabetes mellitus type: type 2 Diabetes mellitus skilled nursing insulin use: without skilled nursing use Diabetes mellitus complication status: without complication Qualified Code(s): E11.9 - Type 2 diabetes mellitus without complications Is this a current diagnosis for this admission?: Yes Plan: 10/16/18 18:09 With the use of intravenous Solu-Medrol her Accu-Chek glucoses have been elevated. They do vary. Continue the Humalog sliding scale at this time. Continue diabetic diet. (5) Morbid obesity Is this a current diagnosis for this admission?: Yes Plan: 10/16/18 18:09 BMI is 58.7 Continue diabetic diet. A structured program for weight loss would be beneficial as an outpatient. The patient was seen by the dietitian. - Time Time Spent with patient: 15-24 minutes Medications reviewed and adjusted accordingly: Yes Anticipated discharge: Home
[2018-10-16] MEDS: CETIRIZINE 10 MG TABLET PO SCH (21:21)
[2018-10-16] MEDS: METOCLOPRAMIDE HCL 10 MG TABLET PO SCH (21:21)
[2018-10-16] MEDS: ACETAMINOPHEN 325 MG TABLET PO PRN (21:24)
[2018-10-17] MEDS: ALBUTEROL SULFATE 0.083% NEB 2.5 MG/3 ML AMPUL NEB PRN ×2 (03:13→19:17)
[2018-10-17] MEDS: ACETAMINOPHEN 325 MG TABLET PO PRN (04:24)
[2018-10-17] MEDS: BENZOCAINE/MENTHOL SORE THROAT LOZENGE BUCCAL PRN ×4 (04:26→21:17)
[2018-10-17] MEDS: PANTOPRAZOLE SODIUM 40 MG TABLET.DR PO SCH ×2 (05:34→17:48)
[2018-10-17] MEDS: GABAPENTIN 300 MG CAPSULE PO SCH ×3 (05:34→21:17)
[2018-10-17] MEDS: METHYLPREDNISOLONE INJ 40 MG/1 ML SDV IV SCH ×3 (05:35→21:19)
[2018-10-17] MEDS: HEPARIN SOD (PORCINE) 5,000 UNIT/ML 1 ML SYRINGE SUBCUT SCH ×3 (05:36→21:19)
[2018-10-17] MEDS: FLUTICASONE NASAL SPRAY 50 MCG/SPRY 120 SPRAY/16 GM NASL SCH ×2 (05:38→17:48)
[2018-10-17] MEDS: BUDESONIDE NEB 0.5 MG/2 ML AMPUL NEB SCH ×2 (07:38→19:17)
[2018-10-17] MEDS: IPRATROPIUM/ALBUTEROL 0.5-2.5 MG/3 ML AMPUL NEB SCH ×2 (07:38→17:14)
[2018-10-17] MEDS: LEVOFLOXACIN 750 MG TABLET PO SCH (07:39)
[2018-10-17] MEDS: INSULIN LISPRO 100 UNIT/ML 3 ML VIAL SUBCUT SCH ×3 (09:28→20:06)
[2018-10-17] MEDS: CELECOXIB 100 MG CAPSULE PO SCH ×2 (09:29→17:48)
[2018-10-17] MEDS: TRAMADOL HCL 50 MG TABLET PO PRN (15:23)
[2018-10-17] MEDS: GUAIFENESIN SYRP 200 MG/10 ML UDC PO PRN (19:45)
[2018-10-17] MEDS: LORAZEPAM 0.5 MG TABLET PO PRN (21:17)
[2018-10-17] MEDS: BENZONATATE 100 MG CAPSULE PO PRN (21:17)
[2018-10-17] MEDS: METOCLOPRAMIDE HCL 10 MG TABLET PO SCH (21:17)
[2018-10-17] MEDS: CETIRIZINE 10 MG TABLET PO SCH (21:17)
[2018-10-18] MEDS: IPRATROPIUM/ALBUTEROL 0.5-2.5 MG/3 ML AMPUL NEB SCH ×4 (00:32→23:27)
[2018-10-18] MEDS: BENZONATATE 100 MG CAPSULE PO PRN (05:31)
[2018-10-18] MEDS: BENZOCAINE/MENTHOL SORE THROAT LOZENGE BUCCAL PRN ×3 (05:31→22:37)
[2018-10-18] MEDS: GABAPENTIN 300 MG CAPSULE PO SCH ×3 (05:31→22:21)
[2018-10-18] MEDS: PANTOPRAZOLE SODIUM 40 MG TABLET.DR PO SCH ×2 (05:31→16:08)
[2018-10-18] MEDS: HEPARIN SOD (PORCINE) 5,000 UNIT/ML 1 ML SYRINGE SUBCUT SCH ×3 (05:32→22:20)
[2018-10-18] MEDS: GUAIFENESIN SYRP 200 MG/10 ML UDC PO PRN (05:32)
[2018-10-18] MEDS: METHYLPREDNISOLONE INJ 40 MG/1 ML SDV IV SCH ×3 (05:33→22:22)
[2018-10-18] MEDS: FLUTICASONE NASAL SPRAY 50 MCG/SPRY 120 SPRAY/16 GM NASL SCH ×2 (05:36→17:46)
--- NOTE | 2018-10-18 06:33 | PDOC PROGRESS REPORT ---
Subjective Progress Note for:: 10/17/18 Subjective:: Bad coughing episode last night with exacerbation of her shortness of breath Reason For Visit: ACUTE BRONCITIS, ASTHMA, DIABETES GERD MORBID Physical Exam Vital Signs: Temp Pulse Resp BP Pulse Ox 98.2 F 72 18 129/76 H 97 10/17/18 11:39 10/17/18 11:39 10/17/18 11:39 10/17/18 11:39 10/17/18 11:39 Pulse Oximeter Continuous Start: 10/12/18 04:04 Freq: RTQ4 Status: Complete Protocol: Document 10/12/18 12:00 JDR (Rec: 10/12/18 13:04 [id number]) Pulse Oximetry Assessment Oxygen Saturation (92-100) 98 Equipment Usage Equipment Standby Continuous SpO2 Machine # 0 Additional RT Notes Other pt on er monitor Pulse Oximeter Nocturnal Start: 10/15/18 13:30 Freq: RTQ4 Status: Complete Protocol: Document 10/16/18 06:27 CMI (Rec: 10/16/18 06:27 CMI [id number]) Nocturnal Pulse Oximetry Equipment Usage Equipment Discontinued Continuous SpO2 Machine # 11 Intake & Output 10/16/18 10/17/18 10/18/18 06:59 06:59 06:59 Intake Total 1700 1454 Balance 1700 1454 Weight 180.2 kg 180.7 kg General appearance: PRESENT: no acute distress, morbidly obese Head exam: PRESENT: normocephalic Eye exam: PRESENT: conjunctiva pink. ABSENT: scleral icterus Ear exam: PRESENT: normal external ear exam Respiratory exam: PRESENT: clear to auscultation louisa, symmetrical, other - Very low threshold for cough. Even taking deep breaths during the exam triggered coughing episode.. ABSENT: accessory muscle use, rales, rhonchi, wheezes Cardiovascular exam: PRESENT: RRR, +S1, +S2 GI/Abdominal exam: PRESENT: normal bowel sounds, soft. ABSENT: distended, tenderness Neurological exam: PRESENT: alert, awake, oriented to person, oriented to place, oriented to time, oriented to situation Psychiatric exam: PRESENT: appropriate affect. ABSENT: agitated, anxious Focused psych exam: ABSENT: delusional, restlessness Results Laboratory Results: 10/14/18 04:24 10/13/18 05:11 10/12/18 06:11 Blood Blood Culture - Final NO GROWTH IN 5 DAYS 10/12/18 02:56 NT-Pro-B Natriuret Pep 181 H Impressions: Chest X-Ray 10/12/18 02:46 IMPRESSION: No acute cardiopulmonary abnormality copyright 2010 [employer]- All Rights Reserved Chest/Abdomen CTA 10/13/18 00:00 IMPRESSION: Negative examination for pulmonary embolism. Esophagus X-Ray 10/16/18 00:00 IMPRESSION: NORMAL POSTOPERATIVE DOUBLE CONTRAST BARIUM SWALLOW. Modified Barium Swallow 10/16/18 00:00 IMPRESSION: NO EVIDENCE OF PENETRATION OR ASPIRATION. PLEASE SEE SPEECH PATHOLOGIST REPORT FOR OTHER FINDINGS AND RECOMMENDATIONS. Assessment and Plan - Diagnosis (1) Asthma attack Qualifiers: Asthma severity: moderate Asthma persistence: persistent Qualified Code(s): J45.41 - Moderate persistent asthma with (acute) exacerbation Is this a current diagnosis for this admission?: Yes Plan: 10/16/18 18:05 Please also see pulmonology note. The patient is slowly improving. We are weaning her to room air. She in fact is stable on room air at rest but minimal exertion typically requires oxygen supplementation. She has been off of the BiPAP today as well. We will continue the IV Solu-Medrol as well as the Flonase and Zyrtec. She did have a modified barium swallow to rule out aspiration and this was negative for any aspiration. She may require oxygen at home. October 17, 2018 It seems that the trigger is in her oropharynx and upper airway. I will discuss this with pulmonology. We will initiate a combination inhaler and try to wean her from the nebulizer treatments. She is still on systemic steroids. (2) Acute respiratory failure with hypoxia Is this a current diagnosis for this admission?: Yes Plan: Acute respiratory failure resolved. (3) Allergic sinusitis Is this a current diagnosis for this admission?: Yes Plan: Continue Flonase and antihistamine. (4) Diabetes Qualifiers: Diabetes mellitus type: type 2 Diabetes mellitus residential insulin use: without residential use Diabetes mellitus complication status: without complication Qualified Code(s): E11.9 - Type 2 diabetes mellitus without complications Is this a current diagnosis for this admission?: Yes Plan: Initiate metformin in anticipation of discharge. Currently sliding scale maintaining good control. (5) Morbid obesity Is this a current diagnosis for this admission?: Yes Plan: Encourage diet and exercise. - Time Time Spent with patient: Less than 15 minutes Medications reviewed and adjusted accordingly: Yes Anticipated discharge: Home
[2018-10-18] MEDS: LEVOFLOXACIN 750 MG TABLET PO SCH (07:38)
[2018-10-18] MEDS: METFORMIN HCL 500 MG TABLET PO SCH ×3 (07:38→16:11)
[2018-10-18] MEDS: TRAMADOL HCL 50 MG TABLET PO PRN ×2 (07:43→17:49)
[2018-10-18] MEDS: BUDESONIDE NEB 0.5 MG/2 ML AMPUL NEB SCH ×2 (07:45→20:14)
[2018-10-18] MEDS: INSULIN LISPRO 100 UNIT/ML 3 ML VIAL SUBCUT SCH ×3 (09:12→16:14)
[2018-10-18] MEDS: FLUTICASONE/VILANTEROL 100-25 MCG/DOSE IH SCH (09:13)
[2018-10-18] MEDS: CELECOXIB 100 MG CAPSULE PO SCH ×2 (09:14→17:46)
[2018-10-18] MEDS: MULTIVITAMIN TABLET PO SCH (17:46)
[2018-10-18] MEDS: METOCLOPRAMIDE HCL 10 MG TABLET PO SCH (22:21)
[2018-10-18] MEDS: CETIRIZINE 10 MG TABLET PO SCH (22:23)
[2018-10-18] MEDS: LORAZEPAM 0.5 MG TABLET PO PRN (22:23)
[2018-10-18] MEDS: ACETAMINOPHEN 325 MG TABLET PO PRN (22:24)
[2018-10-19] MEDS: HEPARIN SOD (PORCINE) 5,000 UNIT/ML 1 ML SYRINGE SUBCUT SCH ×3 (05:44→21:26)
[2018-10-19] MEDS: GABAPENTIN 300 MG CAPSULE PO SCH ×3 (05:45→21:22)
[2018-10-19] MEDS: PANTOPRAZOLE SODIUM 40 MG TABLET.DR PO SCH ×2 (05:46→18:27)
[2018-10-19] MEDS: METHYLPREDNISOLONE INJ 40 MG/1 ML SDV IV SCH ×3 (05:46→21:22)
[2018-10-19] MEDS: LORAZEPAM 0.5 MG TABLET PO PRN ×3 (05:47→21:22)
[2018-10-19] MEDS: TRAMADOL HCL 50 MG TABLET PO PRN ×2 (05:47→22:20)
[2018-10-19] MEDS: BENZOCAINE/MENTHOL SORE THROAT LOZENGE BUCCAL PRN ×3 (05:48→22:20)
[2018-10-19] MEDS: BENZONATATE 100 MG CAPSULE PO PRN ×2 (05:48→21:22)
[2018-10-19] MEDS: FLUTICASONE NASAL SPRAY 50 MCG/SPRY 120 SPRAY/16 GM NASL SCH ×2 (05:51→18:27)
--- NOTE | 2018-10-19 06:51 | PDOC PROGRESS REPORT ---
Subjective Progress Note for:: 10/18/18 Subjective:: The patient reports a slightly better night last night. She still notes significant throat irritation. Since she is not on oxygen at home we will try to taper her off from oxygen. Reason For Visit: ACUTE BRONCITIS, ASTHMA, DIABETES GERD MORBID Physical Exam Vital Signs: Temp Pulse Resp BP Pulse Ox 98.1 F 79 16 130/72 H 97 10/18/18 11:25 10/18/18 11:25 10/18/18 11:25 10/18/18 11:25 10/18/18 11:25 Pulse Oximeter Continuous Start: 10/12/18 04:04 Freq: RTQ4 Status: Complete Protocol: Document 10/12/18 12:00 JDR (Rec: 10/12/18 13:04 [id number]) Pulse Oximetry Assessment Oxygen Saturation (92-100) 98 Equipment Usage Equipment Standby Continuous SpO2 Machine # 0 Additional RT Notes Other pt on er monitor Pulse Oximeter Nocturnal Start: 10/15/18 13:30 Freq: RTQ4 Status: Complete Protocol: Document 10/16/18 06:27 CMI (Rec: 10/16/18 06:27 [email or web address] [id number]) Nocturnal Pulse Oximetry Equipment Usage Equipment Discontinued Continuous SpO2 Machine # 11 Intake & Output 10/17/18 10/18/18 10/19/18 06:59 06:59 06:59 Intake Total 1454 1447 477 Balance 1454 1447 477 Weight 180.7 kg 178 kg General appearance: PRESENT: no acute distress, cooperative, morbidly obese Head exam: PRESENT: atraumatic, normocephalic Eye exam: PRESENT: conjunctiva pink. ABSENT: scleral icterus Ear exam: PRESENT: normal external ear exam Mouth exam: PRESENT: moist, tongue midline Teeth exam: ABSENT: poor dentation Throat exam: PRESENT: post pharyngeal erythema - Mild Neck exam: PRESENT: other - Very large neck. ABSENT: carotid bruit, lymphadenopathy Respiratory exam: PRESENT: decreased breath sounds, symmetrical, unlabored, other - The patient still has a somewhat high-pitched hoarse voice.. ABSENT: rales, rhonchi, wheezes Cardiovascular exam: PRESENT: RRR, +S1, +S2 GI/Abdominal exam: PRESENT: normal bowel sounds, soft, other - Protuberant abdomen. ABSENT: tenderness Rectal exam: PRESENT: deferred Gentrourinary exam: ABSENT: indwelling catheter Extremities exam: PRESENT: pedal edema Musculoskeletal exam: PRESENT: other - Difficult to assess due to morbid obesity Neurological exam: PRESENT: alert, awake, oriented to person, oriented to place, oriented to time, oriented to situation Psychiatric exam: PRESENT: appropriate affect, normal mood. ABSENT: agitated, anxious Focused psych exam: ABSENT: delusional, restlessness Results Laboratory Results: 10/14/18 04:24 10/13/18 05:11 10/12/18 04:30 Blood Blood Culture - Final Staphylococcus Hominis 10/12/18 02:56 NT-Pro-B Natriuret Pep 181 H Impressions: Chest X-Ray 10/12/18 02:46 IMPRESSION: No acute cardiopulmonary abnormality copyright 2011 [employer]- All Rights Reserved Chest/Abdomen CTA 10/13/18 00:00 IMPRESSION: Negative examination for pulmonary embolism. Esophagus X-Ray 10/16/18 00:00 IMPRESSION: NORMAL POSTOPERATIVE DOUBLE CONTRAST BARIUM SWALLOW. Modified Barium Swallow 10/16/18 00:00 IMPRESSION: NO EVIDENCE OF PENETRATION OR ASPIRATION. PLEASE SEE SPEECH PATHOLOGIST REPORT FOR OTHER FINDINGS AND RECOMMENDATIONS. Assessment and Plan - Diagnosis (1) Asthma attack Qualifiers: Asthma severity: moderate Asthma persistence: persistent Qualified Code(s): J45.41 - Moderate persistent asthma with (acute) exacerbation Is this a current diagnosis for this admission?: Yes Plan: The patient had a better night last night. She still has throat irritation. Despite her relatively normal barium swallow study, inflammation of her cords with subsequent exacerbation of asthma certainly is a pattern that fits with reflux. She remains on inhalers and steroid therapy. She is also on Protonix twice daily. She may benefit from a pH probe to further evaluate reflux or nasopharyngoscopy to visualize the vocal cords. (2) Acute respiratory failure with hypoxia Is this a current diagnosis for this admission?: Yes Plan: She is still oxygen dependent. We will work to wean her from her oxygen. She should also be evaluated for sleep apnea. (3) Allergic rhinitis with severe asthma without status asthmaticus Qualifiers: Asthma persistence: persistent Asthma complication type: with acute exacerbation Qualified Code(s): J45.51 - Severe persistent asthma with (acute) exacerbation Is this a current diagnosis for this admission?: Yes Plan: The belief is that the patient's allergic rhinitis triggered the asthma. There is also a possibility of reflux as a contributing factor. The patient is on antihistamine and steroid therapy. She would likely benefit from otolaryngology evaluation. (4) Diabetes Qualifiers: Diabetes mellitus type: type 2 Diabetes mellitus exterminator termite insulin use: without nursing home use Diabetes mellitus complication status: without complication Qualified Code(s): E11.9 - Type 2 diabetes mellitus without complications Is this a current diagnosis for this admission?: Yes Plan: We have resumed her metformin. She also needs to comply with a diabetic diet. Weight loss would also be helpful. (5) Morbid obesity Is this a current diagnosis for this admission?: Yes Plan: Because of the comorbid risk factors including her diabetes, potential heart disease and likely obstructive sleep apnea it would benefit the patient to diet and exercise. With the degree of obesity she might consider being evaluated by a bariatric surgery program. - Time Time Spent with patient: 15-24 minutes Medications reviewed and adjusted accordingly: Yes Anticipated discharge: Home Within: within 48 hours
[2018-10-19] MEDS: IPRATROPIUM/ALBUTEROL 0.5-2.5 MG/3 ML AMPUL NEB SCH ×3 (08:10→23:43)
[2018-10-19] MEDS: BUDESONIDE NEB 0.5 MG/2 ML AMPUL NEB SCH ×2 (08:10→19:33)
[2018-10-19] MEDS: METFORMIN HCL 500 MG TABLET PO SCH ×3 (09:10→16:04)
[2018-10-19] MEDS: LEVOFLOXACIN 750 MG TABLET PO SCH (09:10)
[2018-10-19] MEDS: MULTIVITAMIN TABLET PO SCH (09:11)
[2018-10-19] MEDS: INSULIN LISPRO 100 UNIT/ML 3 ML VIAL SUBCUT SCH ×3 (09:11→16:08)
[2018-10-19] MEDS: FLUTICASONE/VILANTEROL 100-25 MCG/DOSE IH SCH (09:12)
[2018-10-19] MEDS: CELECOXIB 100 MG CAPSULE PO SCH ×2 (09:13→18:28)
[2018-10-19] MEDS: GUAIFENESIN/D-METHORPHAN (200-20 MG) SYRUP 10 ML PO PRN ×2 (09:29→18:37)
--- NOTE | 2018-10-19 12:05 | RADIOLOGY REPORT (SQ) ---
EXAM DESCRIPTION: CHEST 2 VIEWS COMPLETED DATE/TIME: 10/19/2018 11:57 am REASON FOR STUDY: Asthma, respiratory failure COMPARISON: 10/12/2018 EXAM PARAMETERS: NUMBER OF VIEWS: two views TECHNIQUE: Digital Frontal and Lateral radiographic views of the chest acquired. RADIATION DOSE: NA LIMITATIONS: none FINDINGS: LUNGS AND PLEURA: No opacities, masses or pneumothorax. No pleural effusion. MEDIASTINUM AND HILAR STRUCTURES: No masses or contour abnormalities. HEART AND VASCULAR STRUCTURES: Heart normal size. No evidence for failure. BONES: No acute findings. HARDWARE: None in the chest. OTHER: No other significant finding. IMPRESSION: NO ACUTE RADIOGRAPHIC FINDING IN THE CHEST. TECHNICAL DOCUMENTATION: JOB ID: [id number] [employer]- All Rights Reserved Reading location - IP/workstation name: [email or web address]
[2018-10-19] MEDS: CETIRIZINE 10 MG TABLET PO SCH (21:22)
[2018-10-20] MEDS: BENZOCAINE/MENTHOL SORE THROAT LOZENGE BUCCAL PRN ×4 (01:20→22:35)
[2018-10-20] MEDS: GUAIFENESIN/D-METHORPHAN (200-20 MG) SYRUP 10 ML PO PRN ×2 (06:24→16:20)
[2018-10-20] MEDS: METHYLPREDNISOLONE INJ 40 MG/1 ML SDV IV SCH ×2 (06:25→16:10)
[2018-10-20] MEDS: HEPARIN SOD (PORCINE) 5,000 UNIT/ML 1 ML SYRINGE SUBCUT SCH ×3 (06:25→22:35)
[2018-10-20] MEDS: TRAMADOL HCL 50 MG TABLET PO PRN ×3 (06:25→22:35)
[2018-10-20] MEDS: PANTOPRAZOLE SODIUM 40 MG TABLET.DR PO SCH ×2 (06:25→16:11)
[2018-10-20] MEDS: GABAPENTIN 300 MG CAPSULE PO SCH ×3 (06:25→22:35)
[2018-10-20] MEDS: FLUTICASONE NASAL SPRAY 50 MCG/SPRY 120 SPRAY/16 GM NASL SCH ×2 (06:27→19:39)
[2018-10-20] MEDS: LORAZEPAM 0.5 MG TABLET PO PRN ×3 (06:40→22:35)
[2018-10-20] MEDS: BUDESONIDE NEB 0.5 MG/2 ML AMPUL NEB SCH ×2 (08:10→19:57)
[2018-10-20] MEDS: IPRATROPIUM/ALBUTEROL 0.5-2.5 MG/3 ML AMPUL NEB SCH ×2 (08:10→16:06)
[2018-10-20] MEDS: METFORMIN HCL 500 MG TABLET PO SCH ×2 (11:06→16:11)
[2018-10-20] MEDS: INSULIN LISPRO 100 UNIT/ML 3 ML VIAL SUBCUT SCH ×3 (11:06→16:18)
[2018-10-20] MEDS: FLUTICASONE/VILANTEROL 100-25 MCG/DOSE IH SCH (11:07)
[2018-10-20] MEDS: LEVOFLOXACIN 750 MG TABLET PO SCH (11:07)
[2018-10-20] MEDS: CELECOXIB 100 MG CAPSULE PO SCH ×2 (11:08→19:39)
[2018-10-20] MEDS: MULTIVITAMIN TABLET PO SCH (11:08)
--- NOTE | 2018-10-20 13:40 | PDOC PROGRESS REPORT ---
Subjective Progress Note for:: 10/19/18 Subjective:: The patient remains on oxygen. She still has increased work of breathing with exertion. Reason For Visit: ACUTE BRONCITIS, ASTHMA, DIABETES GERD MORBID Physical Exam Vital Signs: Temp Pulse Resp BP Pulse Ox 98.3 F 68 18 137/75 H 99 10/19/18 07:31 10/19/18 08:10 10/19/18 08:10 10/19/18 07:31 10/19/18 08:10 Pulse Oximeter Continuous Start: 10/12/18 04:04 Freq: RTQ4 Status: Complete Protocol: Document 10/12/18 12:00 JDR (Rec: 10/12/18 13:04 [id number]) Pulse Oximetry Assessment Oxygen Saturation (92-100) 98 Equipment Usage Equipment Standby Continuous SpO2 Machine # 0 Additional RT Notes Other pt on er monitor Pulse Oximeter Nocturnal Start: 10/15/18 13:30 Freq: RTQ4 Status: Complete Protocol: Document 10/16/18 06:27 CMI (Rec: 10/16/18 06:27 [email or web address] [id number]) Nocturnal Pulse Oximetry Equipment Usage Equipment Discontinued Continuous SpO2 Machine # 11 Intake & Output 10/18/18 10/19/18 10/20/18 06:59 06:59 06:59 Intake Total 1447 2216 Balance 1447 2216 Weight 178 kg 177.5 kg General appearance: PRESENT: no acute distress, morbidly obese, well-developed Head exam: PRESENT: atraumatic, normocephalic Eye exam: PRESENT: conjunctiva pink. ABSENT: scleral icterus Ear exam: PRESENT: normal external ear exam Mouth exam: PRESENT: moist, neck supple, tongue midline Throat exam: PRESENT: other - Still with hoarse voice Neck exam: ABSENT: carotid bruit, lymphadenopathy, tracheal deviation Respiratory exam: PRESENT: clear to auscultation louisa, symmetrical. ABSENT: rales, rhonchi, wheezes Cardiovascular exam: PRESENT: RRR, +S1, +S2 GI/Abdominal exam: PRESENT: normal bowel sounds, soft. ABSENT: tenderness Rectal exam: PRESENT: deferred Gentrourinary exam: ABSENT: indwelling catheter Extremities exam: PRESENT: pedal edema Musculoskeletal exam: PRESENT: ambulatory Neurological exam: PRESENT: alert, awake, oriented to person, oriented to place, oriented to time, oriented to situation, CN II-XII grossly intact Psychiatric exam: PRESENT: anxious - Regarding her slow recovery., appropriate affect. ABSENT: agitated Focused psych exam: ABSENT: delusional, restlessness Results Laboratory Results: 10/14/18 04:24 10/13/18 05:11 10/12/18 04:30 Blood Blood Culture - Final Staphylococcus Hominis 10/12/18 02:56 NT-Pro-B Natriuret Pep 181 H Impressions: Chest X-Ray 10/12/18 02:46 IMPRESSION: No acute cardiopulmonary abnormality copyright 2011 [employer]- All Rights Reserved Chest/Abdomen CTA 10/13/18 00:00 IMPRESSION: Negative examination for pulmonary embolism. Esophagus X-Ray 10/16/18 00:00 IMPRESSION: NORMAL POSTOPERATIVE DOUBLE CONTRAST BARIUM SWALLOW. Modified Barium Swallow 10/16/18 00:00 IMPRESSION: NO EVIDENCE OF PENETRATION OR ASPIRATION. PLEASE SEE SPEECH PATHOLOGIST REPORT FOR OTHER FINDINGS AND RECOMMENDATIONS. Assessment and Plan - Diagnosis (1) Asthma attack Qualifiers: Asthma severity: moderate Asthma persistence: persistent Qualified Code(s): J45.41 - Moderate persistent asthma with (acute) exacerbation Is this a current diagnosis for this admission?: Yes Plan: Continue steroid therapy. No asthma attack last night but still short of breath with exertion and unable to transition to room air. Continue inhaler regimen as well. (2) Acute respiratory failure with hypoxia Is this a current diagnosis for this admission?: Yes Plan: Still requiring supplemental oxygen. (3) Allergic rhinitis with severe asthma without status asthmaticus Qualifiers: Asthma persistence: persistent Asthma complication type: with acute exacerbation Qualified Code(s): J45.51 - Severe persistent asthma with (acute) exacerbation Is this a current diagnosis for this admission?: Yes Plan: She is now on antihistamines and Flonase. She still feels congested. There is a significant question as to whether postnasal drip triggered the asthma or if she is having reflux. Continue regimen for allergic rhinitis. (4) Diabetes Qualifiers: Diabetes mellitus type: type 2 Diabetes mellitus termination clerk insulin use: without half-way use Diabetes mellitus complication status: without complication Qualified Code(s): E11.9 - Type 2 diabetes mellitus without complications Is this a current diagnosis for this admission?: Yes Plan: Reasonable glucose control. Continue current regimen. We will need to adjust as steroids are adjusted. (5) Morbid obesity Is this a current diagnosis for this admission?: Yes Plan: Encourage diet and exercise after recovery. Weight loss would in fact help her breathing. (6) GERD (gastroesophageal reflux disease) Qualifiers: Esophagitis presence: esophagitis presence not specified Qualified Code(s): K21.9 - Gastro-esophageal reflux disease without esophagitis Is this a current diagnosis for this admission?: Yes Plan: The clinical presentation as well as hoarse voice does suggest reflux. A swallow study was normal and exclude aspiration. The patient will need ENT to evaluate her vocal cords and intranasal passages if she does not improve. - Time Time Spent with patient: Less than 15 minutes Medications reviewed and adjusted accordingly: Yes Anticipated discharge: Home - Plan Summary Plan Summary: If tapering oxygen is unsuccessful the patient may need to discharged home with oxygen therapy.
[2018-10-20] MEDS: ACETAMINOPHEN 325 MG TABLET PO PRN (16:19)
--- NOTE | 2018-10-20 19:19 | PDOC PROGRESS REPORT ---
Subjective Progress Note for:: 10/20/18 Subjective:: Still with cough, dry. Desaturates with minimal exertion. Has intermittent wheezing. Denies fever or chills, no palpitations. Reason For Visit: ACUTE BRONCITIS, ASTHMA, DIABETES GERD MORBID Physical Exam Vital Signs: Temp Pulse Resp BP Pulse Ox 98.0 F 97 16 140/76 H 98 10/20/18 15:46 10/20/18 16:06 10/20/18 16:06 10/20/18 15:46 10/20/18 16:06 Pulse Oximeter Continuous Start: 10/12/18 04:04 Freq: RTQ4 Status: Complete Protocol: Document 10/12/18 12:00 JDR (Rec: 10/12/18 13:04 [id number]) Pulse Oximetry Assessment Oxygen Saturation (92-100) 98 Equipment Usage Equipment Standby Continuous SpO2 Machine # 0 Additional RT Notes Other pt on er monitor Pulse Oximeter Nocturnal Start: 10/15/18 13:30 Freq: RTQ4 Status: Complete Protocol: Document 10/16/18 06:27 CMI (Rec: 10/16/18 06:27 CMI [email or web address]) Nocturnal Pulse Oximetry Equipment Usage Equipment Discontinued Continuous SpO2 Machine # 11 Intake & Output 10/19/18 10/20/18 10/21/18 06:59 06:59 06:59 Intake Total 2216 1819 738 Balance 2216 1819 738 Weight 177.5 kg 179.2 kg General appearance: PRESENT: no acute distress, morbidly obese, well-developed Head exam: PRESENT: atraumatic, normocephalic Eye exam: PRESENT: conjunctiva pink. ABSENT: scleral icterus Ear exam: PRESENT: normal external ear exam Mouth exam: PRESENT: moist, neck supple, tongue midline Throat exam: PRESENT: other - Still with hoarse voice Neck exam: ABSENT: carotid bruit, lymphadenopathy, tracheal deviation Respiratory exam: PRESENT: clear to auscultation louisa, symmetrical. ABSENT: rales, rhonchi, wheezes Cardiovascular exam: PRESENT: RRR, +S1, +S2 Extremities exam: PRESENT: pedal edema Neurological exam: PRESENT: alert, awake, oriented to person, oriented to place, oriented to time, oriented to situation, CN II-XII grossly intact Psychiatric exam: PRESENT: anxious - Regarding her slow recovery., appropriate affect. ABSENT: agitated Focused psych exam: ABSENT: delusional, restlessness Results Results Laboratory Results: 10/14/18 04:24 10/13/18 05:11 10/12/18 02:56 NT-Pro-B Natriuret Pep 181 H Impressions: Chest/Abdomen CTA 10/13/18 00:00 IMPRESSION: Negative examination for pulmonary embolism. Esophagus X-Ray 10/16/18 00:00 IMPRESSION: NORMAL POSTOPERATIVE DOUBLE CONTRAST BARIUM SWALLOW. Modified Barium Swallow 10/16/18 00:00 IMPRESSION: NO EVIDENCE OF PENETRATION OR ASPIRATION. PLEASE SEE SPEECH PATHOLOGIST REPORT FOR OTHER FINDINGS AND RECOMMENDATIONS. Chest X-Ray 10/19/18 11:30 IMPRESSION: NO ACUTE RADIOGRAPHIC FINDING IN THE CHEST. Assessment and Plan - Diagnosis (1) Asthma attack Qualifiers: Asthma severity: moderate Asthma persistence: persistent Qualified Code(s): J45.41 - Moderate persistent asthma with (acute) exacerbation Is this a current diagnosis for this admission?: Yes (2) Acute respiratory failure with hypoxia Is this a current diagnosis for this admission?: Yes (3) Allergic sinusitis Is this a current diagnosis for this admission?: Yes (4) Diabetes Qualifiers: Diabetes mellitus type: type 2 Diabetes mellitus intermediate card tender insulin use: without snf use Diabetes mellitus complication status: without complication Qualified Code(s): E11.9 - Type 2 diabetes mellitus without complications Is this a current diagnosis for this admission?: Yes (5) GERD (gastroesophageal reflux disease) Qualifiers: Esophagitis presence: esophagitis presence not specified Qualified Code(s): K21.9 - Gastro-esophageal reflux disease without esophagitis Is this a current diagnosis for this admission?: Yes (6) Morbid obesity Is this a current diagnosis for this admission?: Yes (7) Allergic rhinitis with severe asthma without status asthmaticus Qualifiers: Asthma persistence: persistent Asthma complication type: with acute exacerbation Qualified Code(s): J45.51 - Severe persistent asthma with (acute) exacerbation Is this a current diagnosis for this admission?: Yes - Plan Summary Plan Summary: Will reduce PPI to 40 mg twice daily from 80 mg twice daily. We will continue t o titrate off O2. Will DC Solu-Medrol and start prednisone 40 mg p.o. twice daily. Patient may very well need to be discharged on O2. Advice use incentive spirometry, ambulation. Will continue Flonase, saturating, Levaquin for now.
[2018-10-20] MEDS ORDERED: PREDNISONE 20 MG TABLET PO ONE (20:45)
[2018-10-20] MEDS: CETIRIZINE 10 MG TABLET PO SCH (22:35)
[2018-10-20] MEDS: BENZONATATE 100 MG CAPSULE PO PRN (22:35)
[2018-10-21] MEDS: IPRATROPIUM/ALBUTEROL 0.5-2.5 MG/3 ML AMPUL NEB SCH ×3 (00:10→15:41)
[2018-10-21] MEDS: GUAIFENESIN/D-METHORPHAN (200-20 MG) SYRUP 10 ML PO PRN ×2 (03:28→14:48)
[2018-10-21] MEDS: BENZOCAINE/MENTHOL SORE THROAT LOZENGE BUCCAL PRN ×4 (03:28→22:04)
[2018-10-21] MEDS: LORAZEPAM 0.5 MG TABLET PO PRN ×3 (03:32→22:03)
[2018-10-21] MEDS: HEPARIN SOD (PORCINE) 5,000 UNIT/ML 1 ML SYRINGE SUBCUT SCH ×3 (06:26→22:01)
[2018-10-21] MEDS: TRAMADOL HCL 50 MG TABLET PO PRN ×3 (06:26→22:03)
[2018-10-21] MEDS: FLUTICASONE NASAL SPRAY 50 MCG/SPRY 120 SPRAY/16 GM NASL SCH ×2 (06:27→18:49)
[2018-10-21] MEDS: BENZONATATE 100 MG CAPSULE PO PRN ×2 (06:27→14:39)
[2018-10-21] MEDS: GABAPENTIN 300 MG CAPSULE PO SCH ×3 (06:27→22:01)
[2018-10-21] MEDS: PANTOPRAZOLE SODIUM 40 MG TABLET.DR PO SCH ×2 (06:27→18:47)
[2018-10-21 07:35] LABS: ABSOLUTE LYMPHOCYTES (AUTO) 1.2 10^3/uL (0.5-4.7); ABSOLUTE MONOCYTES (AUTO) 0.8 10^3/uL (0.1-1.4); ABSOLUTE NEUT (AUTO) 11.6 10^3/uL (1.7-8.2); BASOPHILS % (AUTO) 0.1 % (0-2); HEMATOCRIT 40.8 % (36.0-47.0); HEMOGLOBIN 13.6 g/dL (12.0-15.5); LYMPHOCYTES % (AUTO) 8.7 % (13-45); MEAN CORPUSCULAR HEMOGLOBIN 29.6 pg (27.0-33.4); MEAN CORPUSCULAR HGB CONC 33.2 g/dL (32.0-36.0); MEAN CORPUSCULAR VOLUME 89 fl (80-97); MONOCYTES % (AUTO) 6.1 % (3-13); PLATELET COUNT 311 10^3/uL (150-450); RED BLOOD COUNT 4.59 10^6/uL (3.72-5.28); RED CELL DISTRIBUTION WIDTH 13.6 % (11.5-14.0); SEGMENTED NEUTROPHILS % (AUTO) 85.1 % (42-78); TOTAL CELLS COUNTED % (AUTO) 100 %; WHITE BLOOD COUNT 13.6 10^3/uL (4.0-10.5)
[2018-10-21 07:46] LABS: ANION GAP 9 (5-19); BLOOD UREA NITROGEN 22 mg/dL (7-20); CALCIUM 9.9 mg/dL (8.4-10.2); CARBON DIOXIDE 33 mmol/L (22-30); CHLORIDE 96 mmol/L (98-107); GLUCOSE 210 mg/dL (75-110); SODIUM 138.1 mmol/L (137-145)
[2018-10-21] MEDS: BUDESONIDE NEB 0.5 MG/2 ML AMPUL NEB SCH ×2 (08:05→19:33)
[2018-10-21] MEDS: METFORMIN HCL 500 MG TABLET PO SCH ×2 (08:50→18:43)
[2018-10-21] MEDS: INSULIN LISPRO 100 UNIT/ML 3 ML VIAL SUBCUT SCH ×3 (08:50→18:47)
[2018-10-21] MEDS: LEVOFLOXACIN 750 MG TABLET PO SCH (08:50)
[2018-10-21] MEDS: FLUTICASONE/VILANTEROL 100-25 MCG/DOSE IH SCH (11:08)
[2018-10-21] MEDS: MULTIVITAMIN TABLET PO SCH (11:08)
[2018-10-21] MEDS: CELECOXIB 100 MG CAPSULE PO SCH ×2 (11:08→18:47)
[2018-10-21] MEDS: PREDNISONE 20 MG TABLET PO SCH ×2 (11:08→18:47)
[2018-10-21 11:37] LABS: IMMUNOGLOBULIN A 281 mg/dL (87-352); IMMUNOGLOBULIN G 1131 mg/dL (700-1600); IMMUNOGLOBULIN M 87 mg/dL (26-217)
--- NOTE | 2018-10-21 13:57 | PDOC PROGRESS REPORT ---
Subjective Progress Note for:: 10/21/18 Subjective:: Still with cough, dry. O2 sat running 98-100% on 1 L nasal cannula. However, desaturates with minimal efforts. Has intermittent wheezing. Denies fever or chills, no chest pain or palpitations. Reason For Visit: ACUTE BRONCITIS, ASTHMA, DIABETES GERD MORBID Physical Exam Vital Signs: Temp Pulse Resp BP Pulse Ox 97.6 F 81 17 129/80 H 99 10/21/18 11:13 10/21/18 11:13 10/21/18 11:13 10/21/18 11:13 10/21/18 11:13 Pulse Oximeter Continuous Start: 10/12/18 04:04 Freq: RTQ4 Status: Complete Protocol: Document 10/12/18 12:00 JDR (Rec: 10/12/18 13:04 [id number]) Pulse Oximetry Assessment Oxygen Saturation (92-100) 98 Equipment Usage Equipment Standby Continuous SpO2 Machine # 0 Additional RT Notes Other pt on er monitor Pulse Oximeter Nocturnal Start: 10/15/18 13:30 Freq: RTQ4 Status: Complete Protocol: Document 10/16/18 06:27 CMI (Rec: 10/16/18 06:27 CMI [id number]) Nocturnal Pulse Oximetry Equipment Usage Equipment Discontinued Continuous SpO2 Machine # 11 Intake & Output 10/20/18 10/21/18 10/22/18 06:59 06:59 06:59 Intake Total 1819 1178 Output Total 100 Balance 1819 1078 Weight 179.2 kg 179.2 kg General appearance: PRESENT: no acute distress, morbidly obese, well-developed Head exam: PRESENT: atraumatic, normocephalic Mouth exam: PRESENT: moist, neck supple, tongue midline Throat exam: PRESENT: other - Still with hoarse voice Neck exam: ABSENT: carotid bruit, lymphadenopathy, tracheal deviation Respiratory exam: PRESENT: clear to auscultation louisa, symmetrical. ABSENT: rales, rhonchi, wheezes Cardiovascular exam: PRESENT: RRR, +S1, +S2 Extremities exam: PRESENT: pedal edema Neurological exam: PRESENT: alert, awake, oriented to person, oriented to place, oriented to time, oriented to situation, CN II-XII grossly intact Psychiatric exam: PRESENT: anxious - Regarding her slow recovery., appropriate affect. ABSENT: agitated Focused psych exam: ABSENT: delusional, restlessness Results Laboratory Results: 10/21/18 06:33 10/21/18 06:33 10/21/18 10/21/18 06:33 06:33 WBC 13.6 H RBC 4.59 Hgb 13.6 Hct 40.8 MCV 89 MCH 29.6 MCHC 33.2 RDW 13.6 Plt Count 311 Seg Neutrophils % 85.1 H Lymphocytes % 8.7 L Monocytes % 6.1 Eosinophils % 0.0 Basophils % 0.1 Absolute Neutrophils 11.6 H Absolute Lymphocytes 1.2 Absolute Monocytes 0.8 Absolute Eosinophils 0.0 Absolute Basophils 0.0 Sodium 138.1 Potassium 5.0 Chloride 96 L Carbon Dioxide 33 H Anion Gap 9 BUN 22 H Creatinine 0.65 Est GFR ( Amer) > 60 Est GFR (Non-Af Amer) > 60 Glucose 210 H Calcium 9.9 10/12/18 02:56 NT-Pro-B Natriuret Pep 181 H Impressions: Chest/Abdomen CTA 10/13/18 00:00 IMPRESSION: Negative examination for pulmonary embolism. Esophagus X-Ray 10/16/18 00:00 IMPRESSION: NORMAL POSTOPERATIVE DOUBLE CONTRAST BARIUM SWALLOW. Modified Barium Swallow 10/16/18 00:00 IMPRESSION: NO EVIDENCE OF PENETRATION OR ASPIRATION. PLEASE SEE SPEECH PATHOLOGIST REPORT FOR OTHER FINDINGS AND RECOMMENDATIONS. Chest X-Ray 10/19/18 11:30 IMPRESSION: NO ACUTE RADIOGRAPHIC FINDING IN THE CHEST. Assessment and Plan - Diagnosis (1) Asthma attack Qualifiers: Asthma severity: moderate Asthma persistence: persistent Qualified Code(s): J45.41 - Moderate persistent asthma with (acute) exacerbation Is this a current diagnosis for this admission?: Yes (2) Acute respiratory failure with hypoxia Is this a current diagnosis for this admission?: Yes (3) Allergic sinusitis Is this a current diagnosis for this admission?: Yes (4) Diabetes Qualifiers: Diabetes mellitus type: type 2 Diabetes mellitus longterm insulin use: without tile mechanic helper use Diabetes mellitus complication status: without complication Qualified Code(s): E11.9 - Type 2 diabetes mellitus without complications Is this a current diagnosis for this admission?: Yes (5) GERD (gastroesophageal reflux disease) Qualifiers: Esophagitis presence: esophagitis presence not specified Qualified Code(s): K21.9 - Gastro-esophageal reflux disease without esophagitis Is this a current diagnosis for this admission?: Yes (6) Morbid obesity Is this a current diagnosis for this admission?: Yes (7) Allergic rhinitis with severe asthma without status asthmaticus Qualifiers: Asthma persistence: persistent Asthma complication type: with acute exacerbation Qualified Code(s): J45.51 - Severe persistent asthma with (acute) exacerbation Is this a current diagnosis for this admission?: Yes - Plan Summary Plan Summary: PPI was reduced to 40 mg twice daily from 80 mg twice daily yesterday. Trial of discontinuing O2 today. Solu-Medrol was decreased to prednisone 40 mg twice daily yesterday, will continue those. I encouraged continue use of incentive spirometry, ambulation. Complete Levaquin course. Continue Flonase, antihistamine. Possible discharge home in a.m. if improving/stable. Suspect mild leukocytosis secondary to steroids.
[2018-10-21] MEDS: CETIRIZINE 10 MG TABLET PO SCH (22:02)
[2018-10-22] MEDS: IPRATROPIUM/ALBUTEROL 0.5-2.5 MG/3 ML AMPUL NEB SCH ×3 (00:39→16:11)
[2018-10-22] MEDS: FLUTICASONE NASAL SPRAY 50 MCG/SPRY 120 SPRAY/16 GM NASL SCH ×2 (05:54→17:25)
[2018-10-22] MEDS: HEPARIN SOD (PORCINE) 5,000 UNIT/ML 1 ML SYRINGE SUBCUT SCH ×2 (05:55→13:33)
[2018-10-22] MEDS: GABAPENTIN 300 MG CAPSULE PO SCH ×2 (05:56→13:36)
[2018-10-22] MEDS: PANTOPRAZOLE SODIUM 40 MG TABLET.DR PO SCH ×2 (05:57→16:27)
[2018-10-22] MEDS: TRAMADOL HCL 50 MG TABLET PO PRN ×2 (05:58→13:38)
[2018-10-22] MEDS: BENZOCAINE/MENTHOL SORE THROAT LOZENGE BUCCAL PRN ×2 (05:58→16:27)
[2018-10-22] MEDS: BENZONATATE 100 MG CAPSULE PO PRN (05:59)
[2018-10-22] MEDS: LORAZEPAM 0.5 MG TABLET PO PRN ×2 (05:59→16:27)
[2018-10-22 07:26] LABS: IMMUNOGLOBULIN E 517 IU/mL (6-495)
[2018-10-22] MEDS: BUDESONIDE NEB 0.5 MG/2 ML AMPUL NEB SCH (07:56)
[2018-10-22] MEDS: METFORMIN HCL 500 MG TABLET PO SCH ×2 (08:49→15:46)
[2018-10-22] MEDS: INSULIN LISPRO 100 UNIT/ML 3 ML VIAL SUBCUT SCH ×3 (09:00→17:24)
[2018-10-22] MEDS: FLUTICASONE/VILANTEROL 100-25 MCG/DOSE IH SCH (09:49)
[2018-10-22] MEDS: MULTIVITAMIN TABLET PO SCH (09:50)
[2018-10-22] MEDS: PREDNISONE 20 MG TABLET PO SCH ×2 (09:50→17:25)
[2018-10-22] MEDS: DOCUSATE SODIUM 100 MG CAPSULE PO SCH ×2 (10:42→17:25)
[2018-10-22] MEDS: CELECOXIB 100 MG CAPSULE PO SCH ×2 (10:42→17:25)
[2018-10-22] MEDS: GUAIFENESIN/D-METHORPHAN (200-20 MG) SYRUP 10 ML PO PRN (16:27)
[2018-10-22 16:51] VITALS: BP 114/74
--- NOTE | 2018-10-22 21:00 | PDOC DISCHARGE SUMMARY ---
General - Admit/Disc Date/PCP Admission Date/Primary Care Provider: 10/12/18 04:04 VITALIY PURVIS PA-C Discharge Date: 10/22/18 - Discharge Diagnosis (1) Asthma attack Is this a current diagnosis for this admission?: Yes (2) Acute respiratory failure with hypoxia Is this a current diagnosis for this admission?: Yes (3) Allergic sinusitis Is this a current diagnosis for this admission?: Yes (4) Diabetes Is this a current diagnosis for this admission?: Yes (5) GERD (gastroesophageal reflux disease) Is this a current diagnosis for this admission?: Yes (6) Morbid obesity Is this a current diagnosis for this admission?: Yes (7) Allergic rhinitis with severe asthma without status asthmaticus Is this a current diagnosis for this admission?: Yes - Additional Information Resuscitation Status: Full Code Discharge Diet: As Tolerated Discharge Activity: Balance Activity w/Rest Prescriptions: Budesonide/Formoterol Fumarate [Symbicort Hfa 160-4.5 Mcg Inhaler 6 gm] 2 puff IH Q12 #1 inhaler Cetirizine HCl [All Day Allergy] 10 mg PO DAILY 30 Days #30 tablet Fluticasone Propionate [Flonase Nasal [place] 50 Mcg/[place] 16 gm] 2 spray NASL Q12A 30 Days spray.pump Guaifenesin/D-Methorphan Hb [Robitussin-Dm Syrup 10 ml Udcup] 10 ml PO QIDP PRN 10 Days syrup PRN Reason: Lorazepam [Ativan 0.5 mg Tablet] 0.5 mg PO Q6H PRN 3 Days #10 tab PRN Reason: Metformin HCl [Glucophage 500 mg Tablet] 500 mg PO BIDACBS 30 Days #60 tablet Montelukast Sodium [Singulair 10 mg Tablet] 10 mg PO QHS 30 Days #30 tablet Pantoprazole Sodium [Protonix [address] Tablet] 40 mg PO QAM 30 Days #30 tablet.dr Prednisone [Deltasone 20 mg Tablet] 20 mg PO ASDIR 10 Days tablet Home Medications: Albuterol Sulfate [Ventolin 0.083% Neb 2.5 mg/3 mL Ampul] 1 vial NEB RTQ6HP PRN 10/12/18 Benzonatate [Tessalon Perles 100 mg Capsule] 100 mg PO Q8HP PRN 10/12/18 Celecoxib [Celebrex 100 mg Capsule] 100 mg PO BID 10/12/18 Diclofenac Sodium [Voltaren] 200 gm TP QID 10/12/18 Gabapentin [Neurontin 300 mg Capsule] 300 mg PO Q8 10/12/18 Tramadol HCl [Ultram 50 mg Tablet] 50 mg PO Q6HP PRN 10/12/18 Budesonide/Formoterol Fumarate [Symbicort Hfa 160-4.5 Mcg Inhaler 6 gm] 2 puff IH Q12 #1 inhaler 10/22/18 Cetirizine HCl [All Day Allergy] 10 mg PO DAILY 30 Days #30 tablet 10/22/18 Fluticasone Propionate [Flonase Nasal [place] 50 Mcg/[place] 16 gm] 2 spray NASL Q12A 30 Days spray.pump 10/22/18 Guaifenesin/D-Methorphan Hb [Robitussin-Dm Syrup 10 ml Udcup] 10 ml PO QIDP PRN 10 Days syrup 10/22/18 Lorazepam [Ativan 0.5 mg Tablet] 0.5 mg PO Q6H PRN 3 Days #10 tab 10/22/18 Lorazepam [Ativan 0.5 mg Tablet] 0.5 mg PO Q6HP PRN 3 Days #10 tablet 10/22/18 Metformin HCl [Glucophage 500 mg Tablet] 500 mg PO BIDACBS 30 Days #60 tablet 10/22/18 Montelukast Sodium [Singulair 10 mg Tablet] 10 mg PO QHS 30 Days #30 tablet 10/22/18 Pantoprazole Sodium [Protonix [address] Tablet] 40 mg PO QAM 30 Days #30 tablet.dr 10/22/18 Prednisone [Deltasone 20 mg Tablet] 20 mg PO ASDIR 10 Days tablet 10/22/18 History of Present Illness History of Present Illness: Patient was admitted after presentation nursing HPI below: "NANCY REICH is a 48 year old female with a past medical history of remote gastric bypass with persistent morbid obesity, GERD and persistent asthma with exacerbation of the last 2 weeks associated with rhinorrhea, GERD and nonproductive cough. She has had brief improvement of symptoms with systemic steroids but severe worsening 4 hours prior to presentation. She is found with global wheeze requiring continuous nebulizer, magnesium, ketamine and BiPAP. She denies recent antibiotic use, previous intubation and is otherwise felt well. She is unaware of her baseline peak flow." Hospital Course Hospital Course: Patient was admitted to hospitalist service. She was treated with O2, IV steroids. She had reflux symptoms and was treated with high-dose PPI twice daily. She also had significant problem with allergies and postnasal drip and was treated with Flonase, Zyrtec. Patient had slow improvement with these treatment. She continued to have cough, although she had no more wheezing. Chest x-ray was negative for pneumonia. She also had a CTA done that was negative for PE or pneumonia. Unfortunately patient oxygen saturation continued to drop to the low 80s and even as low as 79% with minimal exertion. These improved with oxygen and her oxygen requirement was able to be titrated down to 1 L NC. She is currently being discharged on O2 1 L continuous. She is to follow-up with Dr. Kong of pulmonology in 1-2 weeks. She is also to follow-up with her PCP within 1 week. Patient is to be off work until she sees her PCP in 1 week. Physical Exam Vital Signs: Temp Pulse Resp BP Pulse Ox 98.3 F 106 H 16 119/77 96 10/22/18 16:41 10/22/18 16:41 10/22/18 16:41 10/22/18 16:41 10/22/18 16:41 Pulse Oximeter Continuous Start: 10/12/18 04:04 Freq: RTQ4 Status: Complete Protocol: Document 10/12/18 12:00 JDR (Rec: 10/12/18 13:04 [id number]) Pulse Oximetry Assessment Oxygen Saturation (92-100) 98 Equipment Usage Equipment Standby Continuous SpO2 Machine # 0 Additional RT Notes Other pt on er monitor Pulse Oximeter Nocturnal Start: 10/15/18 13:30 Freq: RTQ4 Status: Complete Protocol: Document 10/16/18 06:27 CMI (Rec: 10/16/18 06:27 CMI [id number]) Nocturnal Pulse Oximetry Equipment Usage Equipment Discontinued Continuous SpO2 Machine # 11 Intake & Output 10/21/18 10/22/18 10/23/18 06:59 06:59 06:59 Intake Total 1178 1550 900 Output Total 100 600 Balance 1078 950 900 Weight 179.2 kg 179.2 kg General appearance: PRESENT: no acute distress, morbidly obese, well-developed Head exam: PRESENT: atraumatic, normocephalic Mouth exam: PRESENT: moist, neck supple, tongue midline Throat exam: PRESENT: other - Still with hoarse voice Neck exam: ABSENT: carotid bruit, lymphadenopathy, tracheal deviation Respiratory exam: PRESENT: clear to auscultation louisa, symmetrical. ABSENT: rales, rhonchi, wheezes Cardiovascular exam: PRESENT: RRR, +S1, +S2 Extremities exam: PRESENT: pedal edema Neurological exam: PRESENT: alert, awake, oriented to person, oriented to place, oriented to time, oriented to situation, CN II-XII grossly intact Psychiatric exam: PRESENT: anxious - Regarding her slow recovery., appropriate affect. ABSENT: agitated Focused psych exam: ABSENT: delusional, restlessness Results Laboratory Results: 10/21/18 06:33 10/21/18 06:33 10/12/18 02:56 NT-Pro-B Natriuret Pep 181 H Impressions: Chest/Abdomen CTA 10/13/18 00:00 IMPRESSION: Negative examination for pulmonary embolism. Esophagus X-Ray 10/16/18 00:00 IMPRESSION: NORMAL POSTOPERATIVE DOUBLE CONTRAST BARIUM SWALLOW. Modified Barium Swallow 10/16/18 00:00 IMPRESSION: NO EVIDENCE OF PENETRATION OR ASPIRATION. PLEASE SEE SPEECH PATHOLOGIST REPORT FOR OTHER FINDINGS AND RECOMMENDATIONS. Chest X-Ray 10/19/18 11:30 IMPRESSION: NO ACUTE RADIOGRAPHIC FINDING IN THE CHEST. Qualifiers - * PATIENT BEING DISCHARGED WITH ANY OF THE FOLLOWING DIAGNOSIS: No
== END 2018-10-22 18:46 | disposition home or self-care (01) | DRG 202 ==
LOC: ER 02:33 → EH 04:04 → OBSVTOIN 04:04 → 5 15:58
PROVIDERS: ADMIT Internal Medicine; ATTEND Internal Medicine
DX: J45.41 Moderate persistent asthma with (acute) exacerbation (principal); J96.01 Acute respiratory failure with hypoxia; Z68.43 Body mass index [BMI] 50.0-59.9, adult; I10 Essential (primary) hypertension; E11.8 Type 2 diabetes mellitus with unspecified complications; K21.9 Gastro-esophageal reflux disease without esophagitis; G47.33 Obstructive sleep apnea (adult) (pediatric); E66.01 Morbid (severe) obesity due to excess calories; Z98.84 Bariatric surgery status; Z79.84 Long term (current) use of oral hypoglycemic drugs; Z79.51 Long term (current) use of inhaled steroids; Z79.52 Long term (current) use of systemic steroids; Z79.899 Other long term (current) drug therapy
CPT/HCPCS: 36415; 36600; 71045; 71046; 71275; 74220; 74230; 80048; 80053; 82784; 82785; 82803; 82962; 83036; 83735; 83880; 85025; 85027; 87040; 87070; 87077; 87186; 87880; 93005; 93010; 94640; 94660; 94667; 94668; 94762; 94799; 96365; 96372; 96375; 99285; J1644; J1815; J1956; J2060; J2405; J2920; J2930; J3490; J7512; J7620

== ENCOUNTER 2020-08-12 15:48 | Emergency (ER) | payer BC ==
[2020-08-12 17:13] LABS: ABSOLUTE EOSINOPHILS # (AUTO) 0.2 10^3/uL (0.0-0.6); ABSOLUTE NEUT (AUTO) 5.9 10^3/uL (1.7-8.2); BASOPHILS % (AUTO) 0.2 % (0-2); EOSINOPHILS % (AUTO) 1.6 % (0-6); HEMATOCRIT 39.3 % (36.0-47.0); HEMOGLOBIN 12.9 g/dL (12.0-15.5); MEAN CORPUSCULAR HEMOGLOBIN 27.2 pg (27.0-33.4); MEAN CORPUSCULAR HGB CONC 32.8 g/dL (32.0-36.0); MEAN CORPUSCULAR VOLUME 83 fl (80-97); MONOCYTES % (AUTO) 9.4 % (3-13); PLATELET COUNT 378 10^3/uL (150-450); RED BLOOD COUNT 4.74 10^6/uL (3.72-5.28); RED CELL DISTRIBUTION WIDTH 13.6 % (11.5-14.0); SEGMENTED NEUTROPHILS % (AUTO) 52.8 % (42-78); TOTAL CELLS COUNTED % (AUTO) 100 %; WHITE BLOOD COUNT 11.1 10^3/uL (4.0-10.5)
[2020-08-12 17:18] LABS: ALBUMIN 3.9 g/dL (3.5-5.0); ALKALINE PHOSPHATASE 108 U/L (38-126); ANION GAP 7 (5-19); ASPARTATE AMINO TRANSFERASE 29 U/L (14-36); BILIRUBIN,DIRECT 0.3 mg/dL (0.0-0.4); BILIRUBIN,TOTAL 0.5 mg/dL (0.2-1.3); BLOOD UREA NITROGEN 22 mg/dL (7-20); CALCIUM 9.3 mg/dL (8.4-10.2); CARBON DIOXIDE 28 mmol/L (22-30); CHLORIDE 107 mmol/L (98-107); GLUCOSE 123 mg/dL (75-110); POTASSIUM 4.3 mmol/L (3.6-5.0); TOTAL PROTEIN 6.9 g/dL (6.3-8.2)
--- NOTE | 2020-08-12 17:50 | RADIOLOGY REPORT (SQ) ---
EXAM DESCRIPTION: CHEST SINGLE VIEW IMAGES COMPLETED DATE/TIME: 08/12/2020 5:25 pm REASON FOR STUDY: shortness of breath COMPARISON: 10/19/2018 EXAM PARAMETERS: NUMBER OF VIEWS: One view. TECHNIQUE: Single frontal radiographic view of the chest acquired. RADIATION DOSE: NA LIMITATIONS: None. FINDINGS: LUNGS AND PLEURA: No opacities, masses or pneumothorax. No pleural effusion. MEDIASTINUM AND HILAR STRUCTURES: No masses. Contour normal. HEART AND VASCULAR STRUCTURES: Heart normal in size. Normal vasculature. BONES: No acute findings. HARDWARE: None in the chest. OTHER: No other significant finding. IMPRESSION: NO ACUTE RADIOGRAPHIC FINDING IN THE CHEST. TECHNICAL DOCUMENTATION: JOB ID: [id number] 2010 [employer]- All Rights Reserved Reading location - IP/workstation name: [email or web address]
[2020-08-12 19:09] LABS: APPEARANCE,URINE SLIGHTLY-CLOUDY; BILIRUBIN,URINE NEGATIVE (NEGATIVE); COLOR,URINE YELLOW; GLUCOSE, URINE NEGATIVE (NEGATIVE); KETONES,URINE NEGATIVE (NEGATIVE); LEUKOCYTE ESTERASE,URINE TRACE (NEGATIVE); NITRITE,URINE NEGATIVE (NEGATIVE); PROTEIN,URINE NEGATIVE (NEGATIVE); URINE SPECIFIC GRAVITY 1.026
--- NOTE | 2020-08-12 19:12 | ER Document Report ---
ED General - General Chief Complaint: Cough Stated Complaint: SHORTNESS OF BREATH Time Seen by Provider: 08/12/20 19:11 Primary Care Provider: VITALIY PURVIS PA-C [Primary Care Provider] - Follow up as needed TRAVEL OUTSIDE OF THE [place] IN LAST 30 DAYS: No - HPI Notes: 50-year-old female presents with cough. Patient was diagnosed with Covid on 08/05. She states that she has a history of asthma and sees a senior digital designer. Her senior digital designer prescribed her prednisone, antibiotic and advised her to take vitamin D3. She states that she has had cough, intermittent shortness of br eath, fever, nausea and vomiting. She states that she has not really felt much better since taking the medications. Her senior digital designer was out of the office, however she spoke to the PA yesterday, who she has never spoken to before, the PA told her to go to the emergency department for evaluation because she did not want to prescribe anything without seeing the patient. Patient states that she has a burning sensation with breathing. Her main complaint is the cough which has not seemed to go away. She has not tried any cough medications. Her cough is worse at night and often awakens her from sleep. - Related Data Allergies/Adverse Reactions: erythromycin lactobionate [From Erythrocin] Allergy (Verified 09/27/18 16:45) rash Past Medical History - General Information source: Patient - Social History Smoking Status: Never Smoker Chew tobacco use (# tins/day): No Drug Abuse: None Family History: COPD, DM, Hypertension, Malignancy Patient has homicidal ideation: No - Past Medical History Cardiac Medical History: Reports: Hx Hypertension - no meds Denies: Hx Heart Attack Pulmonary Medical History: Reports: Hx Asthma - NO MEDS, Hx Sleep Apnea Neurological Medical History: Reports: Hx Seizures - FEBRILE A TODDLER. Denies: Hx Cerebrovascular Accident Endocrine Medical History: Reports: Hx Diabetes Mellitus Type 2 - no meds Renal/ Medical History: Denies: Hx Peritoneal Dialysis GI Medical History: Reports: Hx Gastroesophageal Reflux Disease, Hx Hiatal Hernia. Denies: Hx Hepatitis, Hx Ulcer Musculoskeletal Medical History: Reports Hx Arthritis Skin Medical History: Denies Hx Eczema, Denies Hx Psoriasis Psychiatric Medical History: Reports: Hx Depression Traumatic Medical History: Denies: Hx Traumatic Brain Injury Infectious Medical History: Denies: Hx Hepatitis Past Surgical History: Reports: Hx Abdominal Surgery - gastric bypass. Denies: Hx Hysterectomy, Hx Mastectomy, Hx Open Heart Surgery, Hx Pacemaker - Immunizations Hx Diphtheria, Pertussis, Tetanus Vaccination: Yes - 6 yrs ago Review of Systems - Review of Systems Constitutional: Chills, Fever EENT: No symptoms reported Cardiovascular: denies: Chest pain Respiratory: Cough, Hurts to breathe, Short of breath Gastrointestinal: Nausea, Vomiting. denies: Abdominal pain Genitourinary: No symptoms reported Female Genitourinary: No symptoms reported Musculoskeletal: No symptoms reported Skin: No symptoms reported Hematologic/Lymphatic: No symptoms reported Neurological/Psychological: No symptoms reported Physical Exam - Vital signs Vitals: Resp BP Pulse Ox 17 114/86 H 100 08/12/20 15:56 08/12/20 15:56 08/12/20 15:56 - General General appearance: Appears well, Alert In distress: None - HEENT Head: Normocephalic, Atraumatic Extraocular movements intact: Yes Pupils: PERRL - Respiratory Respiratory status: No: Labored, Tachypnea Breath sounds: Normal, Nonproductive cough. No: Rhonchi, Wheezing - Cardiovascular Rhythm: Regular Heart sounds: Normal auscultation - Abdominal Inspection: Obese Tenderness: Nontender - Extremities General lower extremity: No: Edema - Neurological Neuro grossly intact: Yes Cognition: Normal Orientation: AAOx4 - Psychological Associated symptoms: Normal affect - Skin Skin Temperature: Warm Course - Re-evaluation Re-evalutation: 50-year-old female history of asthma positive Covid here for continued cough and intermittent short of breath. Patient follows with pulmonology, she is on prednisone and an antibiotic. Main complaint is the persistent cough, worse nocturnally. On exam patient is alert and well-appearing, no wheezing or rhonch i, speaking in full sentences, intermittent nonproductive cough. She is 100% on room air. A chest x-ray was done through the triage process which is negative for infiltrate. Her lab work is grossly unremarkable. I discussed with patient likely she is having sequela of her Covid infection. There is a component of pleuritic chest pain as well. Given no consolidation, I do not have concern for superimposed bacterial pneumonia at this time. Will treat symptomatically with Toradol, guaifenesin, dextromethorphan and Tessalon Perle. 08/12/20 22:17 Slight leukocytosis, no associated left shift, possible from steroid use. No acute anemia. Electrolytes within normal limits. Creatinine within normal limits. No elevation of LFTs. UA not consistent with UTI. No consolidations on chest x-ray. Patient continues to be well-appearing. She has had no hypoxia while in the emergency department. I discussed with her continued symptomatic control at home. Have prescribed Robitussin-AC and Tessalon Perle. Advise close well with senior digital designer. Patient asked for additional prescription for antibiotics, I discussed with her that given the clear chest x-ray, I do not see clear indication at this time for the viral infection. Return precautions given, stable at time of discharge. - Vital Signs Vital signs: Temp Pulse Resp BP Pulse Ox 98.7 F 71 21 H 104/80 99 08/12/20 16:00 08/12/20 21:51 08/12/20 21:51 08/12/20 21:51 08/12/20 21:51 - Laboratory Results Result Diagrams: 08/12/20 16:05 08/12/20 16:05 Laboratory Results Interpreted: 08/12/20 08/12/20 08/12/20 16:05 16:05 18:51 WBC 11.1 H BUN 22 H Glucose 123 H Urine Urobilinogen 2.0 H Ur Leukocyte Esterase TRACE H Critical Laboratory Results Reviewed: No Critical Results - Radiology Results Critical Radiology Results Reviewed: No Critical Results - EKG Interpretation by Me Additional EKG results interpreted by me: EKG is interpreted by me. Sinus rhythm, rate 82. Narrow QRS, QTC within normal limits. Abnormal P wave morphology, likely due to her known pulmonary disease. No ST segment elevation or depression. Discharge - Discharge Clinical Impression: COVID-19 virus infection Disposition: HOME, SELF-CARE Additional Instructions: Use problems and had his Lopressor additional symptomatic control. Please continue ibuprofen. Please follow-up with a senior digital designer. Return to the emergency department for any concerning worsening symptoms. Prescriptions: Benzonatate [Tessalon Perles 100 mg Capsule] 100 mg PO Q8HP PRN #40 capsule PRN Reason: Guaifenesin/Codeine Phos [Robitussin-AC Syrup 59 ml] 10 ml PO QIDP PRN #120 ml PRN Reason: Referrals: VITALIY PURVIS PA-C [Primary Care Provider] - Follow up as needed
--- NOTE | 2020-08-12 19:20 | EKG REPORT ---
SEVERITY:- NORMAL ECG - SINUS RHYTHM : Confirmed by: Lizeth Jimenez MD 12-Aug-2020 19:19:27
[2020-08-12] MEDS ORDERED: GUAIFENESIN/D-METHORPHAN (200-20 MG) SYRUP 10 ML PO ONE ×2 (19:28→22:30)
[2020-08-12] MEDS ORDERED: KETOROLAC TROMETHAMINE INJ/PF 30 MG/1 ML SDV IV ONE ×2 (19:28→22:30)
[2020-08-12] MEDS ORDERED: GUAIFENESIN 600 MG TABLET.SA PO ONE ×2 (19:28→23:00)
[2020-08-12] MEDS ORDERED: BENZONATATE 100 MG CAPSULE PO ONE ×2 (19:28→22:30)
[2020-08-12 22:21] VITALS: BP 105/64
== END 2020-08-12 22:45 | disposition home or self-care (01) ==
LOC: ER 15:48
DX: U07.1 COVID-19 (principal); R05 Cough; J45.909 Unspecified asthma, uncomplicated; R11.2 Nausea with vomiting, unspecified; R06.02 Shortness of breath; R50.9 Fever, unspecified; R07.1 Chest pain on breathing; R07.81 Pleurodynia; I10 Essential (primary) hypertension; E11.9 Type 2 diabetes mellitus without complications; Z88.1 Allergy status to other antibiotic agents
CPT/HCPCS: 93005; 99285; 96374; 36415; 85025; 80053; 81001; 71045; 93010; J1885; J3490